=== PATIENT | female | born 1940 | race Caucasian/White ===

== ENCOUNTER 2016-05-19 17:03 | Inpatient (IN) | payer OTHER ==
[~2016-05-19] VITALS: Ht 157.5 cm; Wt 123.0 kg
[~2016-05-19 17:03] MED LIST: ASPEC81 PO; CHOL1CAP85 PO; CYAN10005 SC; CYM20 PO; DONE1TAB11 PO; DOXY-300 PO; FLV1 PO; FLVHFA110 INH; GABA1CAP5 PO; HYDR-5688 PO; LEVO137T3 PO; MECL1TAB42 PO; METO50TA7 PO; MGNO400 PO; NMN10 PO; PRLSR20 PO; PRM9 PO
[2016-05-19] MEDS ORDERED: MoRPHine SULFATE 4 MG/ML 1 ML CARP\\VIAL IV STA ×2 (18:34→21:54)
[2016-05-19] MEDS ORDERED: ONDANSETRON INJ 2 MG/ML 2 ML VIAL IV STA (18:34)
[2016-05-19 19:06] LABS: COMPLETE YES; HEMATOCRIT 35.9 % (37-47); IG% 0.6 %; LYMPH ABS # 1.73 K/uL (1.2-3.4); MEAN CELL VOLUME 89.3 fL (80-100); MEAN CORPUSCULAR HEMOGLOBIN 30.8 pg (25-34); MEAN CORPUSCULAR HGB CONC 34.5 g/dl (32-36); MEAN PLATELET VOLUME 10.1 fL (7.4-10.4); MONO % 9.2 %; NEUT % 80.2 %; PLATELET COUNT 214 K/uL (130-400); RED BLOOD COUNT 4.02 M/uL (4.2-5.4); WHITE BLOOD COUNT 17.25 K/uL (4.8-10.8)
--- NOTE | 2016-05-19 19:23 | DIAGNOSTIC IMAGING REPORT ---
CT SCAN OF THE ABDOMEN AND PELVIS WITHOUT CONTRAST CLINICAL HISTORY: Right-sided abdominal pain. COMPARISON STUDY: No previous studies for comparison. TECHNIQUE: CT scan of the abdomen and pelvis was performed from the lung bases to the proximal femurs. Images are reviewed in the axial, sagittal, and coronal planes. IV contrast was not administered for this examination. CT DOSE: 1776.29 mGy.cm FINDINGS: Lower chest: There is respiratory motion artifact. There is mild basilar atelectatic change. Liver: There is a small amount of perihepatic fluid present. No hepatic masses are visualized in this noncontrast study. Gallbladder: Cholelithiasis. Mildly distended. Spleen: Normal in size and attenuation. Pancreas: Unremarkable. Adrenal glands: There is mild bilateral adrenal gland thickening Kidneys: No renal, ureteral, or bladder calculi are visualized. Bowel: There is a distended stomach. There are multiple mildly dilated small bowel loops containing multiple air-fluid levels. The distal small bowel is of normal caliber. The findings are indicative of a small bowel obstruction. There is mild tethering of the small bowel loops centrally. No free air is visualized. There are no findings to indicate acute diverticulitis. There are no findings to indicate acute appendicitis. Peritoneum: There is a small amount of free pelvic fluid present. Vasculature: There is no evidence of abdominal aortic aneurysm. There is edema within the central small bowel mesentery. Adenopathy: None. Pelvic viscera: The bladder, and pelvic viscera are unremarkable. Skeletal structures: No destructive osseous lesions are seen. IMPRESSION: 1. Small bowel obstruction with mesenteric edema and low volume ascites 2. No evidence of free intraperitoneal air 3. No renal, ureteral, or bladder calculi identified. 4. Cholelithiasis Electronically signed by: Ildefonso Craig M.D. 05/19/2016 7:21 PM Dictated Date/Time: 05/19/2016 7:16 PM
[2016-05-19 19:28] LABS: BUN/CREATININE RATIO 19.1 (10-20); CALCIUM 9.3 mg/dl (8.5-10.1); CREATININE 1.6 mg/dl (0.60-1.20); POTASSIUM 3.4 mmol/L (3.5-5.1)
[2016-05-19 19:30] VITALS: BP 149/85; PULSE 99; Ht 157.5 cm; Wt 123.0 kg
[2016-05-19 20:12] LABS: URINE APPEARANCE TURBID (CLEAR); URINE BILIRUBIN NEG (NEG); URINE COLOR YELLOW; URINE EPITHELIAL CELL AUTO >30 /lpf (0-5); URINE NITRITE NEG (NEG); URINE PH 6.5 (4.5-7.5); URINE SPECIFIC GRAVITY 1.016 (1.000-1.030); UROBILINOGEN NEG (NEG)
[2016-05-19 20:28] LABS: MANUAL MICROSCOPIC REQUIRED? NO; REVIEW REQ? NO
[2016-05-19] MEDS ORDERED: ONDANSETRON INJ 2 MG/ML 2 ML VIAL IV PRN (20:30)
[2016-05-19] MEDS ORDERED: ACETAMINOPHEN 325 MG TAB PO PRN (20:30)
[2016-05-19] MEDS ORDERED: MoRPHine SULFATE 4 MG/ML 1 ML CARP\\VIAL IV PRN (20:45)
[2016-05-19] MEDS ORDERED: CYM20 PO (20:46)
[2016-05-19] MEDS ORDERED: LEVO100T7 PO (20:46)
[2016-05-19] MEDS ORDERED: HydrALAZINE HCL 20 MG/ML VIAL IV. PRN (21:00)
--- NOTE | 2016-05-19 21:14 | History and Physical ---
History & Physical Date & Time of Service: May 19, 2016 at 20:55 Chief Complaint: Abdominal Pain, Vomiting Primary Care Physician: Junito Torres MD History of Present Illness 75 year old female who presents to the ER with abdominal and vomiting. Due to patient's underlying dementia, history is limited from her. Family reports that she developed nausea and vomiting last night and has had several episodes of vomiting since then. No reports of hematemesis or coffee ground emesis. She also developed generalized abdominal pain that has been progressively getting worse. Patient had diarrhea yesterday; last normal bowel movement was previous day. No BRBPR or dark tarry stools. Patient takes hydrocodone twice a day. No reports of chest pain or shortness of breath. No lightheadedness, dizziness, diaphoresis, or syncopal events. Denies urinary symptoms. No fever or chills. In the ER, CT abd/pelvis is showing SBO. Patient was treated with IV morphine and Zofran. NG tube insertion attempt was unsuccessful. Past Medical/Surgical History Medical Problems: (1) Anxiety Status: Chronic (2) Bacterial meningitis Status: Resolved (3) CKD (chronic kidney disease), stage III Status: Chronic (4) Dementia Status: Chronic (5) Depression Status: Chronic (6) HTN (hypertension) Status: Chronic (7) Hypothyroidism Status: Chronic Surgical Problems: (1) S/P hysterectomy Status: Chronic Family History FH: cancer MOTHER Social History Smoking Status: Former Smoker Alcohol Use: none Housing status: lives with family Immunizations History of Influenza Vaccine: Yes Influenza Vaccine Date: Feb 04, 2016 History of Tetanus Vaccine?: Yes Tetanus Immunization Date: Oct 17, 2008 History of Pneumococcal: Yes Pneumococcal Date: Oct 21, 2015 Multi-Drug Resistant Organisms History of MDRO: No Allergies Coded Allergies: Adhesives (Verified Adverse Reaction, Unknown, SKIN TEARS, 05/19/16) Home Medications Scheduled Aspirin (Aspirin EC Low Dose), 81 MG PO QAM Cholecalciferol (Vitamin D3), 50,000 UNITS PO WEEKLY Cyanocobalamin (Vitamin B-12), 1,000 MCG SC MONTHLY Donepezil Hydrochloride (Donepezil Hcl), 1 TAB PO HS Duloxetine HCl (Duloxetine HCl), 60 MG PO QAM Fluticasone Propionate (Flovent Hfa), 2 PUFFS INH BID Folic Acid (Folic Acid), 1 MG PO QAM Gabapentin (Neurontin), 1 CAP PO QID Levothyroxine Sodium (Levothyroxine Sodium), 150 MCG PO DAILY Magnesium Oxide (Magnesium-Oxide), 400 MG PO BID Memantine (Namenda), 10 MG PO BID Metoprolol Succ (Toprol Xl) (Toprol-Xl), 25 MG PO DAILY Omeprazole (Prilosec Otc *), 20 MG PO DAILY Scheduled PRN Hydrocodone/Acetaminophen 5MG/325MG ([place] 5MG/325MG), 1 TABLET PO Q6 PRN for Pain Meclizine Hcl (Meclizine Hcl), 1 TAB PO TID PRN for Dizziness or Vertigo Review of Systems 10 point review of systems was completed with patient's family with the pertinent positives and negatives noted per the HPI Physical Exam Vital Signs Date Time Temp Pulse Resp B/P Pulse Ox O2 Delivery O2 Flow Rate FiO2 05/19/16 20:53 88 20 149/93 95 Room Air 05/19/16 19:02 81 18 136/102 96 Room Air 05/19/16 17:30 37.1 98 20 137/84 97 Room Air General Appearance: + mild distress (appears to be in pain) Head: normocephalic Eyes: normal inspection ENT: hearing grossly normal Neck: supple, no JVD Respiratory/Chest: lungs clear, normal breath sounds, no respiratory distress Cardiovascular: regular rate, rhythm, + pertinent finding (+2 edema BLLE) Abdomen/GI: soft, + tenderness (generalized), + abnormal bowel sounds ( hyperactive) Extremities/Musculoskelatal: normal inspection, no calf tenderness Neurologic/Psych: alert, + disoriented (to place and time) Skin: + pertinent finding (scattered scabbed areas noted over face and BLUE) Diagnostics Laboratory Results Results Past 24 Hours Test 05/19/16 18:50 05/19/16 19:30 Range/Units White Blood Count 17.25 4.8-10.8 K/uL Red Blood Count 4.02 4.2-5.4 M/uL Hemoglobin 12.4 12.0-16.0 g/dL Hematocrit 35.9 37-47 % Mean Corpuscular Volume 89.3 80-100 fL Mean Corpuscular Hemoglobin 30.8 25-34 pg Mean Corpuscular Hemoglobin Concent 34.5 32-36 g/dl Platelet Count 214 130-400 K/uL Mean Platelet Volume 10.1 7.4-10.4 fL Neutrophils (%) (Auto) 80.2 % Lymphocytes (%) (Auto) 10.0 % Monocytes (%) (Auto) 9.2 % Eosinophils (%) (Auto) 0.0 % Basophils (%) (Auto) 0.0 % Neutrophils # (Auto) 13.84 1.4-6.5 K/uL Lymphocytes # (Auto) 1.73 1.2-3.4 K/uL Monocytes # (Auto) 1.58 0.11-0.59 K/uL Eosinophils # (Auto) 0.00 0-0.5 K/uL Basophils # (Auto) 0.00 0-0.2 K/uL RDW Standard Deviation 50.0 36.4-46.3 fL RDW Coefficient of Variation 15.3 11.5-14.5 % Immature Granulocyte % (Auto) 0.6 % Immature Granulocyte # (Auto) 0.10 0.00-0.02 K/uL Sodium Level 141 136-145 mmol/L Potassium Level 3.4 3.5-5.1 mmol/L Chloride Level 104 98-107 mmol/L Carbon Dioxide Level 22 21-32 mmol/L Anion Gap 15.0 3-11 mmol/L Blood Urea Nitrogen 31 7-18 mg/dl Creatinine 1.60 0.60-1.20 mg/dl Est Creatinine Clear Calc Drug Dose 38.6 ml/min Estimated GFR () 36.4 Estimated GFR (Non- 31.4 BUN/Creatinine Ratio 19.1 10-20 Random Glucose 229 70-99 mg/dl Calcium Level 9.3 8.5-10.1 mg/dl Magnesium Level 2.3 1.8-2.4 mg/dl Total Bilirubin 0.8 0.2-1 mg/dl Direct Bilirubin 0.2 0-0.2 mg/dl Aspartate Amino Transf (AST/SGOT) 10 15-37 U/L Alanine Aminotransferase (ALT/SGPT) 23 12-78 U/L Alkaline Phosphatase 102 45-117 U/L Total Protein 8.3 6.4-8.2 gm/dl Albumin 3.9 3.4-5.0 gm/dl Lipase 82 73-393 U/L Urine Color YELLOW Urine Appearance TURBID CLEAR Urine pH 6.5 4.5-7.5 Urine Specific [place] 1.016 1.000-1.030 Urine Protein 1+ NEG Urine Glucose (UA) NEG NEG Urine Ketones TRACE NEG Urine Occult Blood NEG NEG Urine Nitrite NEG NEG Urine Bilirubin NEG NEG Urine Urobilinogen NEG NEG Urine Leukocyte Esterase MODERATE NEG Urine WBC (Auto) 5-10 0-5 /hpf Urine RBC (Auto) 0-4 0-4 /hpf Urine Hyaline Casts (Auto) 5-10 0-5 /lpf Urine Epithelial Cells (Auto) >30 0-5 /lpf Urine Bacteria (Auto) 4+ NEG Diagnostic Radiology CT ABD/PELVIS IMPRESSION: 1. Small bowel obstruction with mesenteric edema and low volume ascites 2. No evidence of free intraperitoneal air 3. No renal, ureteral, or bladder calculi identified. 4. Cholelithiasis Impression Assessment and Plan SBO - admit to med/surg - hx of hysterectomy and chronic narcotic use - NG placement attempt in ED unsuccessful however at the time of my exam there is no nausea or vomiting - NPO, IVF - f/u abd XR in AM - surgery evaluation in AM AMRIT on CKD STAGE III - baseline creat runs in the low 1's, noted to be 1.6 today - prerenal due to vomiting - IVF, follow up labs in AM - avoid nephrotoxic agents when able ASYMPTOMATIC BACTERURIA - empiric Rocephin due to leukocytosis, adjust per culture results - do not suspect sepsis HTN - BP currently controlled - on metoprolol - holding PO meds due to SBO, will use PRN hydralazine for now DEMENTIA - on Namenda and Aricept - holding PO meds due to SBO HYPOTHYROIDISM - on levothyroxine - holding PO meds due to SBO DVT PROPHYLAXIS - SCDs in the event patient needs surgery CODE STATUS - Patient is a full code as per my discussion with patient's daughter (POA) who is at the bedside DISPO - In my clinical judgment this beneficiary meets acute admission criteria, established by [facility], that includes being hospitalized through two midnights. Attending Addendum: The patient was seen and examined Complains of some abdominal pain but no Nausea and or vomiting Presented to ER with right sided abdominal pain and CT showed SBO Refused NGT O/E Obese No acute distress at rest HEENT-Unremarkable Chest-decreased breath sound bilaterally ,no crackles Abdomen-Distended,Soft ,Mildly tender ,Bowel sound present Extremities-Bilateral edema 1+ Labs and Imaging studies were reviewed Has SBO with H/O Hysterectomy-likely due to adhesions Agree with the assessment and plan Dr Ramon Zaman VTE Prophylaxis VTE Risk Assessment Done? Y/N: Yes Risk Level: Moderate
--- NOTE | 2016-05-19 21:37 | EMERGENCY ROOM VISIT NOTE ---
History Report prepared by Amadeo: Ronaldo Colon Under the Supervision of: Dr. Ari Bentley M.D. First contact with patient: 18:28 Chief Complaint: ABDOMINAL PAIN Stated Complaint: PAIN IN THE R SIDE Nursing Triage Summary: Patient presents to triage via wheelchair, states "I hurt all over." Daughter states "She started complaining of right lower abdominal pain today around 1200. 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 Patient vomiting today; normal BMs. History of Present Illness The patient is a 75 year old female who presents to the Emergency Room with complaints of persistent right-sided abdominal pain that the patient woke up with this morning. Per patient's daughters, the patient has had episodes of vomiting and had diarrhea yesterday. The patient denies fever or urinary symptoms at this time. The HPI is limited due to dementia. Source of History: patient, family History Limited By: dementia Onset: this morning Position: abdomen (right-sided) Timing: other (persistent) Associated Symptoms: + diarrhea, + vomiting, No fevers, No urinary symptoms Review of Systems The ROS is limited due to dementia Past Medical & Surgical Medical Problems: (1) Anxiety (2) Bacterial meningitis (3) CKD (chronic kidney disease), stage III (4) Dementia (5) Depression (6) HTN (hypertension) (7) Hypothyroidism Surgical Problems: (1) S/P hysterectomy Family History Diabetes mellitus FH: cancer MOTHER BROTHER Heart disease Social History Smoking Status: Never Smoker Alcohol Use: none Drug Use: none Marital Status: Occupation Status: retired Current/Historical Medications Scheduled Aspirin (Aspirin EC Low Dose), 81 MG PO QAM Cholecalciferol (Vitamin D3), 50,000 UNITS PO WEEKLY Cyanocobalamin (Vitamin B-12), 1,000 MCG SC MONTHLY Donepezil Hydrochloride (Donepezil Hcl), 1 TAB PO HS Duloxetine HCl (Duloxetine HCl), 60 MG PO QAM Fluticasone Propionate (Flovent Hfa), 2 PUFFS INH BID Folic Acid (Folic Acid), 1 MG PO QAM Gabapentin (Neurontin), 1 CAP PO QID Levothyroxine Sodium (Levothyroxine Sodium), 150 MCG PO DAILY Magnesium Oxide (Magnesium-Oxide), 400 MG PO BID Memantine (Namenda), 10 MG PO BID Metoprolol Succ (Toprol Xl) (Toprol-Xl), 25 MG PO DAILY Omeprazole (Prilosec Otc *), 20 MG PO DAILY Scheduled PRN Hydrocodone/Acetaminophen 5MG/325MG ([place] 5MG/325MG), 1 TABLET PO Q6 PRN for Pain Meclizine Hcl (Meclizine Hcl), 1 TAB PO TID PRN for Dizziness or Vertigo Allergies Coded Allergies: Adhesives (Verified Adverse Reaction, Unknown, SKIN TEARS, 05/19/16) Physical Exam Vital Signs Date Time Temp Pulse Resp B/P Pulse Ox O2 Delivery O2 Flow Rate FiO2 05/19/16 19:02 81 18 136/102 96 Room Air 05/19/16 17:30 37.1 98 20 137/84 97 Room Air Physical Exam Constitutional: Vital signs reviewed. Eyes: Pupils are equal round reactive to light. Conjunctiva are noninjected. ENT: Pharynx is clear without erythema or exudate. Mucous membranes are moist. Neck supple without meningeal signs. Respiratory: Clear to auscultation bilaterally. Breath sounds are equal bilaterally. Cardiovascular: Regular rate and rhythm. No rubs or gallops. GI: Soft, nondistended with tenderness in the right upper and lower abdomen. No guarding. Bowel sounds are present. Musculoskeletal:No CVA tenderness. Integumentary: No cyanosis. Neurological: The patient is awake and alert. No focal deficits. Psychiatric: Unable to assess. Medical Decision & Procedures ER Provider Diagnostic Interpretation: Other radiology results as stated below per my review and the radiologist's interpretation: CT SCAN OF THE ABDOMEN AND PELVIS WITHOUT CONTRAST CLINICAL HISTORY: Right-sided abdominal pain. COMPARISON STUDY: No previous studies for comparison. TECHNIQUE: CT scan of the abdomen and pelvis was performed from the lung bases to the proximal femurs. Images are reviewed in the axial, sagittal, and coronal planes. IV contrast was not administered for this examination. CT DOSE: 1776.29 mGy.cm FINDINGS: Lower chest: There is respiratory motion artifact. There is mild basilar atelectatic change. Liver: There is a small amount of perihepatic fluid present. No hepatic masses are visualized in this noncontrast study. Gallbladder: Cholelithiasis. Mildly distended. Spleen: Normal in size and attenuation. Pancreas: Unremarkable. Adrenal glands: There is mild bilateral adrenal gland thickening Kidneys: No renal, ureteral, or bladder calculi are visualized. Bowel: There is a distended stomach. There are multiple mildly dilated small bowel loops containing multiple air-fluid levels. The distal small bowel is of normal caliber. The findings are indicative of a small bowel obstruction. There is mild tethering of the small bowel loops centrally. No free air is visualized. There are no findings to indicate acute diverticulitis. There are no findings to indicate acute appendicitis. Peritoneum: There is a small amount of free pelvic fluid present. Vasculature: There is no evidence of abdominal aortic aneurysm. There is edema within the central small bowel mesentery. Adenopathy: None. Pelvic viscera: The bladder, and pelvic viscera are unremarkable. Skeletal structures: No destructive osseous lesions are seen. IMPRESSION: 1. Small bowel obstruction with mesenteric edema and low volume ascites 2. No evidence of free intraperitoneal air 3. No renal, ureteral, or bladder calculi identified. 4. Cholelithiasis Electronically signed by: Ildefonso Craig M.D. 05/19/2016 7:21 PM Dictated Date/Time: 05/19/2016 7:16 PM Laboratory Results 05/19/16 18:50 Red Blood Count 4.02, Mean Corpuscular Volume 89.3, Mean Corpuscular Hemoglobin 30.8, Mean Corpuscular Hemoglobin Concent 34.5, Mean Platelet Volume 10.1, Neutrophils (%) (Auto) 80.2, Lymphocytes (%) (Auto) 10.0, Monocytes (%) (Auto) 9.2, Eosinophils (%) (Auto) 0.0, Basophils (%) (Auto) 0.0, Neutrophils # (Auto) 13.84, Lymphocytes # (Auto) 1.73, Monocytes # (Auto) 1.58, Eosinophils # (Auto) 0.00, Basophils # (Auto) 0.00 05/19/16 18:50 Test 05/19/16 18:50 05/19/16 19:30 White Blood Count 17.25 K/uL (4.8-10.8) Red Blood Count 4.02 M/uL (4.2-5.4) Hemoglobin 12.4 g/dL (12.0-16.0) Hematocrit 35.9 % (37-47) Mean Corpuscular Volume 89.3 fL (80-100) Mean Corpuscular Hemoglobin 30.8 pg (25-34) Mean Corpuscular Hemoglobin Concent 34.5 g/dl (32-36) Platelet Count 214 K/uL (130-400) Mean Platelet Volume 10.1 fL (7.4-10.4) Neutrophils (%) (Auto) 80.2 % Lymphocytes (%) (Auto) 10.0 % Monocytes (%) (Auto) 9.2 % Eosinophils (%) (Auto) 0.0 % Basophils (%) (Auto) 0.0 % Neutrophils # (Auto) 13.84 K/uL (1.4-6.5) Lymphocytes # (Auto) 1.73 K/uL (1.2-3.4) Monocytes # (Auto) 1.58 K/uL (0.11-0.59) Eosinophils # (Auto) 0.00 K/uL (0-0.5) Basophils # (Auto) 0.00 K/uL (0-0.2) RDW Standard Deviation 50.0 fL (36.4-46.3) RDW Coefficient of Variation 15.3 % (11.5-14.5) Immature Granulocyte % (Auto) 0.6 % Immature Granulocyte # (Auto) 0.10 K/uL (0.00-0.02) Anion Gap 15.0 mmol/L (3-11) Est Creatinine Clear Calc Drug Dose 38.6 ml/min Estimated GFR () 36.4 Estimated GFR (Non- 31.4 BUN/Creatinine Ratio 19.1 (10-20) Calcium Level 9.3 mg/dl (8.5-10.1) Magnesium Level 2.3 mg/dl (1.8-2.4) Total Bilirubin 0.8 mg/dl (0.2-1) Direct Bilirubin 0.2 mg/dl (0-0.2) Aspartate Amino Transf (AST/SGOT) 10 U/L (15-37) Alanine Aminotransferase (ALT/SGPT) 23 U/L (12-78) Alkaline Phosphatase 102 U/L (45-117) Total Protein 8.3 gm/dl (6.4-8.2) Albumin 3.9 gm/dl (3.4-5.0) Lipase 82 U/L (73-393) Urine Color YELLOW Urine Appearance TURBID (CLEAR) Urine pH 6.5 (4.5-7.5) Urine Specific [place] 1.016 (1.000-1.030) Urine Protein 1+ (NEG) Urine Glucose (UA) NEG (NEG) Urine Ketones TRACE (NEG) Urine Occult Blood NEG (NEG) Urine Nitrite NEG (NEG) Urine Bilirubin NEG (NEG) Urine Urobilinogen NEG (NEG) Urine Leukocyte Esterase MODERATE (NEG) Urine WBC (Auto) 5-10 /hpf (0-5) Urine RBC (Auto) 0-4 /hpf (0-4) Urine Hyaline Casts (Auto) 5-10 /lpf (0-5) Urine Epithelial Cells (Auto) >30 /lpf (0-5) Urine Bacteria (Auto) 4+ (NEG) Laboratory results as reviewed by me. Medications Administered Medications (Trade) Dose Ordered Sig/Arian Route Start Time Stop Time Status Last Admin Dose Admin Morphine Sulfate (MoRPHine SULFATE INJ) 4 mg ONE STAT IV 05/19/16 18:34 05/19/16 18:37 DC 05/19/16 18:57 4 MG Ondansetron HCl (Zofran Inj) 4 mg NOW STAT IV 05/19/16 18:34 05/19/16 18:37 DC 05/19/16 18:57 4 MG ED Course 1819: The patient was evaluated in room B7. A complete history and physical exam was performed. 1833: Ordered Zofran Inj 4 mg IV, Morphine Sulfate 4 mg IV. 1944: At this time, I discussed the test results with the patient and her daughter. 1956: At this time, I discussed the patient's case with Dr. aZman - Hospitalist [facility] and he agreed to accept the patient for further evaluation. Medical Decision This is a 75-year-old female who presents with right-sided abdominal pain. Differential diagnosis includes acute appendicitis, perforation, abscess, cholecystitis, pancreatitis, bowel obstruction. I did perform a limited focused review of portions of the patient's old chart on the electronic medical record. The patient has had no recent pertinent visits to this hospital. I did evaluate the patient as noted above. I did obtain history from the patient's daughters because of her dementia. She is presenting with right- sided abdominal pain and tenderness. IV access was established. I did treat patient with IV morphine and Zofran. I did order and review the patient's blood work as noted in the electronic medical record. Her white blood cell count is elevated. I did order a CT of the abdomen and pelvis. I did review the images myself as well as the radiology report as described above. She does have a small bowel obstruction. I did order an NG tube. I did discuss case with the hospitalist and case investigator. I did discuss the test results with the patient and her daughter. Consults Time Called: 1951 Consulting Physician: Dr. Zaman - Hospitalist Paul Returned Call: 1956 At this time, I discussed the patient's case with Dr. Zaman and he agreed to accept the patient for further evaluation. Impression Primary Impression: Small bowel obstruction Scribe Attestation The scribe's documentation has been prepared under my direct and personally reviewed by me in its entirety. I confirm that the note above accurately reflects all work, treatment, procedures, and medical decision making performed by me. Departure Information Dispostion Being Evaluated By Hospitalist Prescriptions Duloxetine HCl (Duloxetine HCl) 20 Mg Cap 60 MG PO QAM, #30 CAP Prov: Betty Miller ., DANIELLA 05/19/16 Referrals Junito Torres MD (PCP)
[2016-05-19] MEDS ORDERED: NURSING VERBAL MED ORDER ONE (21:45)
[2016-05-19] MEDS ORDERED: MoRPHine SULFATE 4 MG/ML 1 ML CARP\\VIAL IV ONE (22:00)
[2016-05-19] MEDS ORDERED: CEFTRIAXONE SOD INJ 1 GM in DEXTROSE 5% ADD-VANTAGE 50ML 50 ML IV SCH (22:00)
[2016-05-19 22:21] VITALS: BP 122/57; PULSE 123; O2SAT 95
[2016-05-19] MEDS: SODIUM CHLORIDE 0.9% 1000ML 1,000 ML IV SCH (22:44)
[2016-05-19 23:05] VITALS: BP 115/77; PULSE 106; TEMP 36.3; O2SAT 92
[2016-05-19] MEDS: POTASSIUM CHLR 10 MEQ / WTR 10 MEQ in PREMIXED WATER 100 ML IV SCH (23:30)
[2016-05-19] MEDS ORDERED: LORAZEPAM INJ 1 MG in SYRINGE 0.5 ML IV STA (23:52)
[2016-05-20] VITALS (43 sets, daily range): BP systolic 35–117; BP diastolic 23–80; PULSE 97–143; TEMP 36.8; O2SAT 91–100
[2016-05-20] MEDS: POTASSIUM CHLR 10 MEQ / WTR 10 MEQ in PREMIXED WATER 100 ML IV SCH ×3 (00:45→03:10)
[2016-05-20] MEDS ORDERED: MoRPHine SULFATE 2 MG/ML CARP IV STA ×2 (05:30→14:25)
[2016-05-20] MEDS: SODIUM CHLORIDE 0.9% 1000ML 1,000 ML IV SCH (05:52)
[2016-05-20] MEDS ORDERED: LORAZEPAM INJ 0.5 MG in SYRINGE 0.25 ML IV STA (06:42)
[2016-05-20 06:56] LABS: ESTIMATED AVERAGE GLUCOSE 91 mg/dl; HA1C FLAG Normal (Normal)
[2016-05-20 08:21] LABS: HEMATOCRIT 32.3 % (37-47); MEAN CELL VOLUME 91.2 fL (80-100); MEAN CORPUSCULAR HEMOGLOBIN 30.5 pg (25-34); MEAN CORPUSCULAR HGB CONC 33.4 g/dl (32-36); MEAN PLATELET VOLUME 10.9 fL (7.4-10.4); PLATELET COUNT 198 K/uL (130-400); RED BLOOD COUNT 3.54 M/uL (4.2-5.4); WHITE BLOOD COUNT 30.92 K/uL (4.8-10.8)
[2016-05-20 08:31] LABS: BUN/CREATININE RATIO 18.8 (10-20); CALCIUM 9.1 mg/dl (8.5-10.1); CREATININE 2.3 mg/dl (0.60-1.20); POTASSIUM 4.8 mmol/L (3.5-5.1)
--- NOTE | 2016-05-20 08:44 | DIAGNOSTIC IMAGING REPORT ---
CHEST ONE VIEW PORTABLE HISTORY: Respiratory distress. COMPARISON: Chest 03/10/2015. FINDINGS: There are low lung volumes with mild elevation the right hemidiaphragm. Bibasilar linear densities favor subsegmental atelectasis. No focal lung consolidations to suggest pneumonia. No evidence for pulmonary edema. The heart is normal in size. IMPRESSION: Low lung volumes with mild elevation of the right hemidiaphragm and bibasilar linear densities. This favors subsegmental atelectasis. Electronically signed by: Bc Judge M.D. 05/20/2016 8:42 AM Dictated Date/Time: 05/20/2016 8:41 AM
--- NOTE | 2016-05-20 09:00 | Progress Note ---
Medicine Progress Note Date & Time of Visit: May 20, 2016 at 08:37. Subjective 0800: Called by nurse that patient was writhing around the bed and she was unable to get a blood pressure on her. I ordered IVF wide open and came to bedside. Could not obtain a pulse on arrival with a RR 31. Could not obtain lung sounds as she had frequent moaning and upper airway sounds, but did hear some air movement. Feet looked dusky purple. Ordered stat CXR, called for PLASTIC INSTALLER to evaluate. Starting 100% oxygen with bagging and sat came up to 94%, lab called with a critical WBC 30K, repeat labs drawn ([place]). FSG was >120. Rhythm is sinus on monitor. Heading to ICU for further workup and treatment. Contacted daughter to update her on status change. She mentioned mom has had a "cold" with cough and congestion for the last 2-3 weeks. She then began having diarrhea 2 days ago with worsening abdominal pain yesterday. Denies any fevers , chills or mention of UTI symptoms. Was admitted for SBO overnight, also found to have a UTI. Started on Rocephin for the UTI. No free air or evidence of infection on CT A/P. NGT placement was unsuccessful in ER (two attempts in each nare) and declined further attempts because of epistaxis from trauma. She was placed on the floor and given Morphine and some Ativan overnight. Last dose of morphine was 0300 and last dose of Ativan was 0630. Last recorded vitals were 2300 and were 115/77 RR 30 T36.3 P106 92% RA. Objective Last 8 Hrs Date Time Temp Pulse Resp B/P Pulse Ox O2 Delivery O2 Flow Rate FiO2 05/20/16 07:39 Room Air 05/20/16 02:00 24 Physical Exam: GEN: obese, writhing in acute distress, says "ow" when I push on her abdomen, facial grimacing, lips and mouth are dry, tachypneic HEENT: NC/AT, PERRL, normal sclerae CARDIO: reg rate, S1/2 heard without m/g/r, could not obtain palpable pulse in groin, carotid, brachial or peripheral extremities LUNGS: CTA bilaterally but limited exam ABD: soft, TTP in upper abdomen, no BS appreciated EXTREMITY: warm but with a dusky purple appearance, no palpable pulses, no edema. N/M: could not obtain SKIN: warm and dry and as above Laboratory Results: Last 24 Hours Test 05/19/16 18:50 05/19/16 19:30 05/20/16 07:35 White Blood Count 17.25 K/uL 30.92 K/uL Red Blood Count 4.02 M/uL 3.54 M/uL Hemoglobin 12.4 g/dL 10.8 g/dL Hematocrit 35.9 % 32.3 % Mean Corpuscular Volume 89.3 fL 91.2 fL Mean Corpuscular Hemoglobin 30.8 pg 30.5 pg Mean Corpuscular Hemoglobin Concent 34.5 g/dl 33.4 g/dl Platelet Count 214 K/uL 198 K/uL Mean Platelet Volume 10.1 fL 10.9 fL Neutrophils (%) (Auto) 80.2 % Lymphocytes (%) (Auto) 10.0 % Monocytes (%) (Auto) 9.2 % Eosinophils (%) (Auto) 0.0 % Basophils (%) (Auto) 0.0 % Neutrophils # (Auto) 13.84 K/uL Lymphocytes # (Auto) 1.73 K/uL Monocytes # (Auto) 1.58 K/uL Eosinophils # (Auto) 0.00 K/uL Basophils # (Auto) 0.00 K/uL RDW Standard Deviation 50.0 fL 53.8 fL RDW Coefficient of Variation 15.3 % 16.1 % Immature Granulocyte % (Auto) 0.6 % Immature Granulocyte # (Auto) 0.10 K/uL Sodium Level 141 mmol/L 141 mmol/L Potassium Level 3.4 mmol/L 4.8 mmol/L Chloride Level 104 mmol/L 107 mmol/L Carbon Dioxide Level 22 mmol/L 17 mmol/L Anion Gap 15.0 mmol/L 17.0 mmol/L Blood Urea Nitrogen 31 mg/dl 43 mg/dl Creatinine 1.60 mg/dl 2.30 mg/dl Est Creatinine Clear Calc Drug Dose 38.6 ml/min 26.9 ml/min Estimated GFR () 36.4 23.5 Estimated GFR (Non- 31.4 20.3 BUN/Creatinine Ratio 19.1 18.8 Random Glucose 229 mg/dl 192 mg/dl Estimated Average Glucose 91 mg/dl Hemoglobin A1c 4.8 % Calcium Level 9.3 mg/dl 9.1 mg/dl Magnesium Level 2.3 mg/dl Total Bilirubin 0.8 mg/dl Direct Bilirubin 0.2 mg/dl Aspartate Amino Transf (AST/SGOT) 10 U/L Alanine Aminotransferase (ALT/SGPT) 23 U/L Alkaline Phosphatase 102 U/L Total Protein 8.3 gm/dl Albumin 3.9 gm/dl Lipase 82 U/L Urine Color YELLOW Urine Appearance TURBID Urine pH 6.5 Urine Specific [place] 1.016 Urine Protein 1+ Urine Glucose (UA) NEG Urine Ketones TRACE Urine Occult Blood NEG Urine Nitrite NEG Urine Bilirubin NEG Urine Urobilinogen NEG Urine Leukocyte Esterase MODERATE Urine WBC (Auto) 5-10 /hpf Urine RBC (Auto) 0-4 /hpf Urine Hyaline Casts (Auto) 5-10 /lpf Urine Epithelial Cells (Auto) >30 /lpf Urine Bacteria (Auto) 4+ Assessment & Plan 75 yo F admitted for SBO and found to have a UTI, became less responsive and hypotensive, rapid response was initiated and she was transferred to ICU 1. Hypotension-etiologies include but not limited to septic shock (WBC 30K), hypovolemic shock (diarrhea and vomiting recently) and medication reaction ( Ativan given this morning). 1L fluid bolus running, transferred to ICU for further workup and treatment. Daughter reports a recent cold for 2-3 weeks. Will order flu swab. CXR reveals a RLL infiltrate-no comparison available-- likely 2/2 aspiration with recent events. Defer to ICU team for further care. 2. SBO-Gen Surg consulted on patient and should be seeing her this morning. 3. UTI-cont Rocephin, however, abx will likely be broadened in light of recent events. 4. AMRIT-worsened on am labs likely related to poor perfusion. Cont IVF. 5. Leukocytosis 2/2 above-17K on admission and 31K this morning. 6. Dementia 7. Hypothyroidism DVT proph-SCDs (no chemoprophy in light of poss need for procedure) Full Dispo: to ICU for further workup and treatment Olya Stewart DO [facility] Hospitalist Current Inpatient Medications: Current Inpatient Medications Medications (Trade) Dose Ordered Sig/Arian Route Start Time Stop Time Status Last Admin Dose Admin Acetaminophen (Tylenol Tab) 650 mg Q4H PRN PO 05/19/16 20:30 06/18/16 20:29 Ondansetron HCl 4 mg 4 mg Q6H PRN IV 1/12/17 20:30 06/18/16 20:29 Sodium Chloride 1,000 ml @ 125 mls/hr Q8H IV 05/19/16 21:30 06/18/16 21:29 05/20/16 05:52 125 MLS/HR Ceftriaxone Sodium/Dextrose (Rocephin Inj/ Dextrose Add-[place] 50ML) 50 ml @ 100 mls/hr Q24H IV 05/19/16 22:00 05/24/16 21:59 05/19/16 23:25 100 MLS/HR Morphine Sulfate (MoRPHine SULFATE INJ) 4 mg Q4H PRN IV 05/19/16 20:45 06/02/16 20:44 05/20/16 03:11 4 MG Hydralazine HCl (HydrALAZINE INJ) 10 mg Q6H PRN IV. 05/19/16 21:00 06/18/16 20:59
[2016-05-20 09:03] LABS: IPAP 15; ISTAT ARTERIAL BLOOD GAS HCO3 10 meq/L (19-24); ISTAT ARTERIAL BLOOD GAS PCO2 28 mmHg (35-46); ISTAT ARTERIAL BLOOD GAS PO2 303 mmHg (80-95); ISTAT ARTERIAL BLOOD GAS pH 7.16 (7.35-7.45); ISTAT CARBON DIOXIDE 11 mEq/l (24-31); ISTAT DELIVERY SYSTEM BIPAP; ISTAT FIO2 100 %; ISTAT RATE 14; ISTAT SITE R Brachial
[2016-05-20] MEDS ORDERED: SODIUM BICARB 8.4% INJ 50 MEQ/50 ML SYR - CCU EMERGENCY DRUG IV ONE (09:09)
[2016-05-20] MEDS ORDERED: PIPERACILL/TAZOBAC CONSULT ACTIVE PRN (09:45)
[2016-05-20] MEDS ORDERED: SODIUM BICARBONATE 8.4% INJ 150 MEQ in DEXTROSE 5% 1000ML 1,000 ML IV SCH (09:45)
[2016-05-20] MEDS ORDERED: PIPERACILL/TAZOBAC IV 4.5 GM in DEXTROSE 5% 100ML IV ONE (10:00)
[2016-05-20] MEDS ORDERED: PROPOFOL IV EMULSION 10 MG/ML 100 ML VIAL IV ONE (10:06)
[2016-05-20] MEDS ORDERED: FENTANYL CITRATE INJ 50 MCG/1 ML 2 ML VIAL ONE (10:07)
[2016-05-20] MEDS ORDERED: NURSING VERBAL MED ORDER ONE ×2 (10:15)
--- NOTE | 2016-05-20 10:16 | Critical Care Consultation ---
Critical Care Consultation Date of Consultation: May 20, 2016. Attending Physician: Olya Stewart DO Reason for Consultation: SBO, hypotension History of Present Illness Attending: Dr. Guillory This is a 75-year-old female that presented to the emergency room yesterday with abdominal pain and vomiting. Family reports that she had vomiting that developed rather quickly over a 24-hour period. She had a CT of the abdomen and pelvis which showed a small bowel obstruction with no free air. Patient was placed on the medical floor and overnight it is reported that nursing had increasing problems with acquiring vital signs and with increased agitation by the patient. This morning, a yue purple was called for rapid response team, and we are asked to evaluate the patient. At that time, patient was found to be awake and agitated but could not answer any questions appropriately. Patient stated that she was short of breath on multiple occasions during the time of her visit. Pulse oximetry was obtained and patient was found to be 94% after several minutes of [id number] resuscitation. Blood pressure was not able to be obtained until the patient arrived in the intensive care unit and at that time was found to be 89/67. BiPAP was placed at 10/5. In the ICU, the patient became more hypotensive and a central line was placed in the right IJ. Patient then required endotracheal intubation. An OG tube was placed with immediate return of approximately 800mL of dark gastric contents. Patient was taken to CT for repeat imaging and found to have evidence of hemorrhagic ascites and blood in the stomach. There was progressive mesenteric edema with development of mesenteric venous gas and portal venous gas consistent with ischemic bowel. Patient continued with evidence for small bowel obstruction. Past Medical/Surgical History Medical Problems: (1) Anxiety (2) Bacterial meningitis (3) Chronic gastric ulcer (4) CKD (chronic kidney disease), stage III (5) Degenerative lumbar spinal stenosis (6) Dementia (7) Depression (8) Folic acid deficiency (9) History of tobacco abuse (10) HTN (hypertension) (11) Hypothyroidism (12) Meniere's disease (13) Neurotic excoriations (14) Obesity, Class III, BMI 40-49.9 (morbid obesity) (15) Vitamin B12 deficiency Surgical Problems: (1) S/P hysterectomy Family History FH: cancer MOTHER Social History Smoking Status: Former Smoker Smokeless Tobacco Use: No Alcohol Use: none Drug Use: none Marital Status: Housing Status: lives with family Occupation Status: retired Allergies Coded Allergies: Adhesives (Verified Adverse Reaction, Unknown, SKIN TEARS, 05/19/16) Home Medications Scheduled Aspirin (Aspirin EC Low Dose), 81 MG PO QAM Cholecalciferol (Vitamin D3), 50,000 UNITS PO WEEKLY Cyanocobalamin (Vitamin B-12), 1,000 MCG SC MONTHLY Donepezil Hydrochloride (Donepezil Hcl), 1 TAB PO HS Duloxetine HCl (Duloxetine HCl), 60 MG PO QAM Fluticasone Propionate (Flovent Hfa), 2 PUFFS INH BID Folic Acid (Folic Acid), 1 MG PO QAM Gabapentin (Neurontin), 1 CAP PO QID Levothyroxine Sodium (Levothyroxine Sodium), 150 MCG PO DAILY Magnesium Oxide (Magnesium-Oxide), 400 MG PO BID Memantine (Namenda), 10 MG PO BID Metoprolol Succ (Toprol Xl) (Toprol-Xl), 25 MG PO DAILY Omeprazole (Prilosec Otc *), 20 MG PO DAILY Scheduled PRN Hydrocodone/Acetaminophen 5MG/325MG ([place] 5MG/325MG), 1 TABLET PO Q6 PRN for Pain Meclizine Hcl (Meclizine Hcl), 1 TAB PO TID PRN for Dizziness or Vertigo Current Inpatient Medications Current Inpatient Medications Medications (Trade) Dose Ordered Sig/Arian Route Start Time Stop Time Status Last Admin Dose Admin Acetaminophen (Tylenol Tab) 650 mg Q4H PRN PO 05/19/16 20:30 06/18/16 20:29 Ondansetron HCl (Zofran Inj) 4 mg Q6H PRN IV 05/19/16 20:30 06/18/16 20:29 Morphine Sulfate (MoRPHine SULFATE INJ) 4 mg Q4H PRN IV 05/19/16 20:45 06/02/16 20:44 05/20/16 03:11 4 MG Hydralazine HCl (HydrALAZINE INJ) 10 mg Q6H PRN IV. 05/19/16 21:00 06/18/16 20:59 Piperacillin Sod/ Tazobactam Sod 1 ea 1 ea UD PRN N/A 05/20/16 09:45 06/19/16 09:44 Sodium Bicarbonate 150 meq/Dextrose 1,150 ml @ 150 mls/hr Q7H40M IV 05/20/16 09:45 06/19/16 09:44 Piperacillin Sod/ Tazobactam Sod 4.5 gm/Dextrose 120 ml @ 200 mls/hr 1000 ONCE IV 05/20/16 10:00 05/20/16 10:35 Piperacillin Sod/ Tazobactam Sod 4.5 gm/Dextrose 120 ml @ 30 mls/hr Q8H IV 05/20/16 16:00 05/30/16 09:59 Pantoprazole Sodium/Syringe (Protonix Inj/ Syringe) 10 ml @ 5 mls/min DAILY@11 IV 05/20/16 11:00 06/19/16 10:59 Albuterol/ Ipratropium 3 ml 3 ml QIDR INH 05/20/16 12:00 06/19/16 11:59 Norepinephrine Bitartrate 8 mg/ Dextrose 508 ml @ 0 mls/hr Q0M PRN IV 05/20/16 10:15 06/19/16 10:14 Metronidazole/Prmx (Flagyl / Nss/ Premixed Nss) 100 ml @ 100 mls/hr Q8H IV 05/20/16 10:30 05/30/16 10:29 Review of Systems Unable to obtain secondary to patient condition Physical Exam Date Time Temp Pulse Resp B/P Pulse Ox O2 Delivery O2 Flow Rate FiO2 05/20/16 07:39 Room Air 05/20/16 02:00 24 05/19/16 23:05 36.3 106 30 115/77 92 Room Air 05/19/16 22:21 123 30 122/57 95 Room Air 05/19/16 20:53 88 20 149/93 95 Room Air 05/19/16 19:30 Room Air 05/19/16 19:30 99 20 149/85 05/19/16 19:30 Room Air 05/19/16 19:02 81 18 136/102 96 Room Air 05/19/16 17:30 37.1 98 20 137/84 97 Room Air GENERAL : Significant acute distress EYES: No icterus, gaze conjugate. PERRL NOSE: No evidence of epistaxis. MOUTH: No lesions or candidiasis. Mucosa dry. Tongue midline NECK: Supple. No appreciation of carotid bruits or lymphadenopathy LUNGS: Bibasilar crackles with expiratory bronchospasm HEART: Regular, tachycardic at one 10 bpm ABDOMEN: Soft, diffusely tender to light and deep palpation. No fluid wave. Rebound tenderness. EXTREMITIES: No LE edema, pedal pulses intact bilaterally but faint. Feet dusky NEURO: Awake and agitated. Unable to assess deep tendon reflexes. Pupils equal and reactive bilaterally. Strength equal and appropriate to upper extremities. Does not follow simple commands. INTEGUMENTARY: Skin dry and cool. Multiple excoriations.. No evidence of acute cellulitis Laboratory Results Last 24 Hours Test 05/19/16 18:50 05/19/16 19:30 05/20/16 07:35 05/20/16 08:20 White Blood Count 17.25 K/uL 30.92 K/uL Red Blood Count 4.02 M/uL 3.54 M/uL Hemoglobin 12.4 g/dL 10.8 g/dL Hematocrit 35.9 % 32.3 % Mean Corpuscular Volume 89.3 fL 91.2 fL Mean Corpuscular Hemoglobin 30.8 pg 30.5 pg Mean Corpuscular Hemoglobin Concent 34.5 g/dl 33.4 g/dl Platelet Count 214 K/uL 198 K/uL Mean Platelet Volume 10.1 fL 10.9 fL Neutrophils (%) (Auto) 80.2 % Lymphocytes (%) (Auto) 10.0 % Monocytes (%) (Auto) 9.2 % Eosinophils (%) (Auto) 0.0 % Basophils (%) (Auto) 0.0 % Neutrophils # (Auto) 13.84 K/uL Lymphocytes # (Auto) 1.73 K/uL Monocytes # (Auto) 1.58 K/uL Eosinophils # (Auto) 0.00 K/uL Basophils # (Auto) 0.00 K/uL RDW Standard Deviation 50.0 fL 53.8 fL RDW Coefficient of Variation 15.3 % 16.1 % Immature Granulocyte % (Auto) 0.6 % Immature Granulocyte # (Auto) 0.10 K/uL Sodium Level 141 mmol/L 141 mmol/L Potassium Level 3.4 mmol/L 4.8 mmol/L Chloride Level 104 mmol/L 107 mmol/L Carbon Dioxide Level 22 mmol/L 17 mmol/L Anion Gap 15.0 mmol/L 17.0 mmol/L Blood Urea Nitrogen 31 mg/dl 43 mg/dl Creatinine 1.60 mg/dl 2.30 mg/dl Est Creatinine Clear Calc Drug Dose 38.6 ml/min 26.9 ml/min Estimated GFR () 36.4 23.5 Estimated GFR (Non- 31.4 20.3 BUN/Creatinine Ratio 19.1 18.8 Random Glucose 229 mg/dl 192 mg/dl Estimated Average Glucose 91 mg/dl Hemoglobin A1c 4.8 % Calcium Level 9.3 mg/dl 9.1 mg/dl Magnesium Level 2.3 mg/dl Total Bilirubin 0.8 mg/dl Direct Bilirubin 0.2 mg/dl Aspartate Amino Transf (AST/SGOT) 10 U/L Alanine Aminotransferase (ALT/SGPT) 23 U/L Alkaline Phosphatase 102 U/L Total Protein 8.3 gm/dl Albumin 3.9 gm/dl Lipase 82 U/L Urine Color YELLOW Urine Appearance TURBID Urine pH 6.5 Urine Specific [place] 1.016 Urine Protein 1+ Urine Glucose (UA) NEG Urine Ketones TRACE Urine Occult Blood NEG Urine Nitrite NEG Urine Bilirubin NEG Urine Urobilinogen NEG Urine Leukocyte Esterase MODERATE Urine WBC (Auto) 5-10 /hpf Urine RBC (Auto) 0-4 /hpf Urine Hyaline Casts (Auto) 5-10 /lpf Urine Epithelial Cells (Auto) >30 /lpf Urine Bacteria (Auto) 4+ Bedside Glucose 126 mg/dl Test 05/20/16 08:51 Blood Gas Sample Site R Brachial Bedside Blood Gas pH (LAB) 7.16 Bedside Blood Gas pCO2 (LAB) 28 mmHg Bedside Blood Gas pO2 (LAB) 303 mmHg Bedside Blood Gas HCO3 (LAB) 10 meq/L Bedside Blood Gas Total CO2 11 mEq/l Bedside Blood Gas Base Excess (LAB) -19.0 meq/L Bedside Blood Gas O2 Saturation 100.0 % Jose Juan Test NA Oxygen Delivery Device BIPAP Bedside Oxygen Rate (breaths/min) 14 Bedside FiO2 100 % Blood Gas IPAP 15 Diagnostic Results [~ rep ct add3]] CT SCAN OF THE ABDOMEN AND PELVIS WITHOUT CONTRAST CLINICAL HISTORY: Small bowel obstruction. Gastrointestinal hemorrhage. Evaluate for perforation. COMPARISON STUDY: 05/19/2016 TECHNIQUE: CT scan of the abdomen and pelvis was performed from the lung bases to the proximal femurs. Images are reviewed in the axial, sagittal, and coronal planes. IV contrast was not administered for this examination. CT DOSE: 2544.29 mGy.cm FINDINGS: Lower chest: There are bibasal atelectatic changes. There are coronary artery calcifications. Liver: There is increasing perihepatic fluid. There is portal venous gas. No focal masses are visualized. Gallbladder: There is progressive gallbladder distention. Multiple calculi are visualized. Spleen: Normal in size and attenuation. Pancreas: Unremarkable. Adrenal glands: There is stable adrenal gland thickening Kidneys: No renal, ureteral, or bladder calculi are visualized Bowel: There are dilated small bowel loops with multiple air-fluid levels. There is mesenteric edema. There is mesenteric venous gas. The findings are suggestive of a small bowel obstruction with bowel ischemia. There is been interval placement of a nasogastric tube. Peritoneum: No free air is visualized. There is increasing pelvic fluid. This appears hyperdense and may be hemorrhagic Vasculature: The abdominal aorta is normal in course and caliber. Adenopathy: None. Pelvic viscera: There is residual a Franco catheter. There is air within the bladder likely iatrogenic. There is been interval placement of a left femoral line. Skeletal structures: No destructive osseous lesions are seen. IMPRESSION: 1. Continued evidence for a small bowel obstruction. There is increasing ascites which is hyperdense and likely hemorrhagic. There is progressive mesenteric edema. There has been interval development of mesenteric venous gas and portal venous gas. The findings are highly suggestive of ischemic bowel. The findings were discussed with the ordering clinician. 2. Cholelithiasis and gallbladder distention 3. Interval placement of a nasogastric tube and left femoral catheter Electronically signed by: Ildefonso Craig M.D. 05/20/2016 12:16 PM Dictated Date/Time: 05/20/2016 12:08 PM CHEST ONE VIEW PORTABLE HISTORY: LINE PLACEMENT COMPARISON: Chest 05/20/2016. FINDINGS: The endotracheal tube terminates 8 mm from the amy. Nasogastric tube terminates below the diaphragm. The tip is not included on this study. There is moderate distention of the gas-filled stomach. Mild elevation the right hemidiaphragm persists. There are low lung volumes. The heart is stable in size. No pneumothorax. No pleural effusions. No evidence for pulmonary edema. Right jugular central venous catheter terminates in the proximal SVC. IMPRESSION: 1. The endotracheal tube terminates 8 mm from the amy. This should be pulled back by approximately 2 to 3 cm. Otherwise, satisfactory support line placement. 2. Low lung volumes with mild elevation of the right hemidiaphragm, unchanged. 3. Moderate distention of the stomach. Electronically signed by: Bc Judge M.D. 05/20/2016 10:38 AM Dictated Date/Time: 05/20/2016 10:34 AM Assessment & Plan (1) Small bowel obstruction Surgery consulted and seen by Dr. Bran Repeat CT scan shows ischemic bowel as well Currently patient is too unstable for OR Very poor prognosis OG tube in place Discontinue ceftriaxone and start Zosyn and metronidazole Acidotic with pH is 7.1 and bicarbonate of 10 Continue aggressive fluid hydration with D5 with three absent HCO3 at 150 mL per hour (2) Chronic gastric ulcer Start patient on pantoprazole 40 mg IV OG tube with approximately 800 mL of dark gastric content GI consulted - appreciate Dr. Guzman's input No indication for EGD secondary to acute ischemic bowel and poor prognosis Repeat H&H Type and cross packed red blood cells Follow serial labs (3) HTN (hypertension) Hold antihypertensive secondary to hypotension Patient currently on levo fed Titrate to map greater than 60 Continue on telemetry (4) Hypothyroidism Hold levothyroxine for now due to poor prognosis and probable comfort care If status changes start levothyroxine IV (5) Depression Hold home medications secondary to status (6) Anxiety No benzodiazepines or other anxiolytics secondary to severe hypotension (7) CKD (chronic kidney disease), stage III Baseline creatinine 1.6 Current creatinine 2.3 Continue aggressive fluid hydration Serial labs Most likely multi system organ failure secondary to acute illness (8) Folic acid deficiency No indication for casting replacement this time secondary to acute status (9) Neurotic excoriations No evidence of cellulitis Wound care consulted Focus on palliative care at this time (10) Obesity, Class III, BMI 40-49.9 (morbid obesity) (11) Meniere's disease Hold meclizine secondary to acute condition (12) History of tobacco abuse Quit smoking 13 years ago (13) DVT prophylaxis No chemical prophylaxis secondary to acute GI bleed Patient currently with SCDs in place Elevated d-dimer - Doubt pulmonary embolus - unable to anticoagulate secondary to acute GI bleed and ischemic bowel (14) Need for intravenous access Right IJ catheter placed 05/20/16 Left femoral arterial line placed 05/20/16 CODE STATUS: Lengthy discussion with family regarding code status and futility of care. Multidisciplinary discussion with GI, surgery, heel coverer. Change to level V DO NOT RESUSCITATE/DO NOT INTUBATE. Focus on palliation per AGUEDA Joslyn Theresa, daughter and Angle Eber, daughter. They're contacting remainder of family and will advise to any further change in code status. CCT: 90 minutes independent of any procedures. Includes lengthy discussion regarding CODE STATUS with family. Includes discussion with other providers including surgery, radiologist, bleach tester. Patient seen with Dr. Guillory. Please refer to her addendum for further recommendations. Panel Machine Operator Attending: I personally interviewed and examined the patient and have discussed her presentation and care with Stanley Diaz PA-C. I agree with what is documented in his note. I was in her room shortly after her arrival to the ICU to place TLC and arterial line. I was not contacted by the primary service regarding her transfer and code purple. History and exam documented above and it confirms my review of the chart and exam as well. Labs, vitals, medications, imaging, micro have been reviewed. This is an unfortunate woman who was admitted to the hospital with abdominal pain and who has developed GIB along with mesenteric ischemia. I resuscitated her with 4 liters of crystalloid and antibiotics were broadened upon arrival to the ICU. She was intubated and lined. After her Ct abd/pelvis from today was reviewed, I also discussed her care with Dr. Bran. She was continuing to deteriorate and clearly has multisystem organ failure due to septic shock and likely a catastrophic intrabdominal process. I spoke with her family in conference with Mary. Thy opted to focus on comfort but they are waiting for other family members to arrive before stopping levophed. I don't think she would survive surgery with her frail and debilitated state and her daughters express that she would not want to live just to have to live in a alf. Support was provided and multiple discussions with family occurred throughout the day. Please call me with any questions or concerns.
[2016-05-20] MEDS: NOREPINEPHRINE BIT INJ 8 MG in DEXTROSE 5% 500ML 500 ML IV PRN ×3 (10:21→14:23)
[2016-05-20] MEDS: METRONIDAZOLE 500MG / NSS IV SCH ×2 (10:25→18:01)
--- NOTE | 2016-05-20 10:40 | DIAGNOSTIC IMAGING REPORT ---
CHEST ONE VIEW PORTABLE HISTORY: LINE PLACEMENT COMPARISON: Chest 05/20/2016. FINDINGS: The endotracheal tube terminates 8 mm from the amy. Nasogastric tube terminates below the diaphragm. The tip is not included on this study. There is moderate distention of the gas-filled stomach. Mild elevation the right hemidiaphragm persists. There are low lung volumes. The heart is stable in size. No pneumothorax. No pleural effusions. No evidence for pulmonary edema. Right jugular central venous catheter terminates in the proximal SVC. IMPRESSION: 1. The endotracheal tube terminates 8 mm from the amy. This should be pulled back by approximately 2 to 3 cm. Otherwise, satisfactory support line placement. 2. Low lung volumes with mild elevation of the right hemidiaphragm, unchanged. 3. Moderate distention of the stomach. Electronically signed by: Bc Judge M.D. 05/20/2016 10:38 AM Dictated Date/Time: 05/20/2016 10:34 AM
--- NOTE | 2016-05-20 10:47 | History and Physical ---
History & Physical Date & Time of Service: May 20, 2016 at 10:11 Chief Complaint: Small Bowel Obstruction Primary Care Physician: Junito Torres MD History of Present Illness 75 year old female who presents to the ER with abdominal and vomiting. Due to patient's underlying dementia, history is limited from her. Family reports that she developed nausea and vomiting last night and has had several episodes of vomiting since then. No reports of hematemesis or coffee ground emesis. She also developed generalized abdominal pain that has been progressively getting worse. Patient had diarrhea yesterday; last normal bowel movement was previous day. No BRBPR or dark tarry stools. Patient takes hydrocodone twice a day. No reports of chest pain or shortness of breath. No lightheadedness, dizziness, diaphoresis, or syncopal events. Denies urinary symptoms. No fever or chills. In the ER, CT abd/pelvis is showing SBO. Patient was treated with IV morphine and Zofran. NG tube insertion attempt was unsuccessful. I got a call from nurse nayae SBO consult. now pt is just transfered to ICU base on pt 's condition is worse, lower BP 80 mmhg. pt is intubated now, I can only reviewed ER and progress note, I reviewed CXR and CT scan and labs, once pt had intubation and IV fluid, now BP 132/62, HR 102, O2 sat 96%. Past Medical/Surgical History Medical Problems: (1) Anxiety Status: Chronic (2) Bacterial meningitis Status: Resolved (3) CKD (chronic kidney disease), stage III Status: Chronic (4) Dementia Status: Chronic (5) Depression Status: Chronic (6) HTN (hypertension) Status: Chronic (7) Hypothyroidism Status: Chronic Surgical Problems: (1) S/P hysterectomy Status: Chronic Family History FH: cancer MOTHER Social History Smoking Status: Never Smoker Smokeless Tobacco Use: No Alcohol Use: none Drug Use: none Marital Status: Housing status: lives with family Occupational Status: retired Immunizations History of Influenza Vaccine: Yes Influenza Vaccine Date: Feb 04, 2016 History of Tetanus Vaccine?: Yes Tetanus Immunization Date: Oct 17, 2008 History of Pneumococcal: Yes Pneumococcal Date: Oct 21, 2015 Multi-Drug Resistant Organisms History of MDRO: No Allergies Coded Allergies: Adhesives (Verified Adverse Reaction, Unknown, SKIN TEARS, 05/19/16) Home Medications Scheduled Aspirin (Aspirin EC Low Dose), 81 MG PO QAM Cholecalciferol (Vitamin D3), 50,000 UNITS PO WEEKLY Cyanocobalamin (Vitamin B-12), 1,000 MCG SC MONTHLY Donepezil Hydrochloride (Donepezil Hcl), 1 TAB PO HS Duloxetine HCl (Duloxetine HCl), 60 MG PO QAM Fluticasone Propionate (Flovent Hfa), 2 PUFFS INH BID Folic Acid (Folic Acid), 1 MG PO QAM Gabapentin (Neurontin), 1 CAP PO QID Levothyroxine Sodium (Levothyroxine Sodium), 150 MCG PO DAILY Magnesium Oxide (Magnesium-Oxide), 400 MG PO BID Memantine (Namenda), 10 MG PO BID Metoprolol Succ (Toprol Xl) (Toprol-Xl), 25 MG PO DAILY Omeprazole (Prilosec Otc *), 20 MG PO DAILY Scheduled PRN Hydrocodone/Acetaminophen 5MG/325MG ([place] 5MG/325MG), 1 TABLET PO Q6 PRN for Pain Meclizine Hcl (Meclizine Hcl), 1 TAB PO TID PRN for Dizziness or Vertigo Review of Systems Constitutional: + chills, + fever Abdomen: + nausea, + pain, + vomiting Physical Exam Vital Signs Date Time Temp Pulse Resp B/P Pulse Ox O2 Delivery O2 Flow Rate FiO2 05/20/16 07:39 Room Air 05/20/16 02:00 24 05/19/16 23:05 36.3 106 30 115/77 92 Room Air 05/19/16 22:21 123 30 122/57 95 Room Air 05/19/16 20:53 88 20 149/93 95 Room Air 05/19/16 19:30 Room Air 05/19/16 19:30 99 20 149/85 05/19/16 19:30 Room Air 05/19/16 19:02 81 18 136/102 96 Room Air 05/19/16 17:30 37.1 98 20 137/84 97 Room Air General Appearance: + mild distress (appears to be in pain) Head: normocephalic Eyes: normal inspection ENT: hearing grossly normal Neck: supple, no JVD Respiratory/Chest: lungs clear, normal breath sounds, no respiratory distress Cardiovascular: regular rate, rhythm, + pertinent finding (+2 edema BLLE) Abdomen/GI: soft, no organomegaly, no pulsatile mass, normal rectal exam, + tenderness (generalized), + abnormal bowel sounds (hyperactive) Extremities/Musculoskelatal: normal inspection, no calf tenderness Neurologic/Psych: + disoriented (to place and time) Skin: + pertinent finding (scattered scabbed areas noted over face and BLUE) pt is intubated now, could not do neurologic exam, pt had NG tube in 5ooml blood out,UGI bleeding. on abdomen exam- soft, no distend, no skin color change, rectal exam- no rectal bleeding, normal rectal tone, no mass, Diagnostics Laboratory Results Results Past 24 Hours Test 05/19/16 18:50 05/19/16 19:30 05/20/16 07:35 05/20/16 08:20 Range/Units White Blood Count 17.25 30.92 4.8-10.8 K/uL Red Blood Count 4.02 3.54 4.2-5.4 M/uL Hemoglobin 12.4 10.8 12.0-16.0 g/dL Hematocrit 35.9 32.3 37-47 % Mean Corpuscular Volume 89.3 91.2 80-100 fL Mean Corpuscular Hemoglobin 30.8 30.5 25-34 pg Mean Corpuscular Hemoglobin Concent 34.5 33.4 32-36 g/dl Platelet Count 214 198 130-400 K/uL Mean Platelet Volume 10.1 10.9 7.4-10.4 fL Neutrophils (%) (Auto) 80.2 % Lymphocytes (%) (Auto) 10.0 % Monocytes (%) (Auto) 9.2 % Eosinophils (%) (Auto) 0.0 % Basophils (%) (Auto) 0.0 % Neutrophils # (Auto) 13.84 1.4-6.5 K/uL Lymphocytes # (Auto) 1.73 1.2-3.4 K/uL Monocytes # (Auto) 1.58 0.11-0.59 K/uL Eosinophils # (Auto) 0.00 0-0.5 K/uL Basophils # (Auto) 0.00 0-0.2 K/uL RDW Standard Deviation 50.0 53.8 36.4-46.3 fL RDW Coefficient of Variation 15.3 16.1 11.5-14.5 % Immature Granulocyte % (Auto) 0.6 % Immature Granulocyte # (Auto) 0.10 0.00-0.02 K/uL Sodium Level 141 141 136-145 mmol/L Potassium Level 3.4 4.8 3.5-5.1 mmol/L Chloride Level 104 107 98-107 mmol/L Carbon Dioxide Level 22 17 21-32 mmol/L Anion Gap 15.0 17.0 3-11 mmol/L Blood Urea Nitrogen 31 43 7-18 mg/dl Creatinine 1.60 2.30 0.60-1.20 mg/dl Est Creatinine Clear Calc Drug Dose 38.6 26.9 ml/min Estimated GFR () 36.4 23.5 Estimated GFR (Non- 31.4 20.3 BUN/Creatinine Ratio 19.1 18.8 10-20 Random Glucose 229 192 70-99 mg/dl Estimated Average Glucose 91 mg/dl Hemoglobin A1c 4.8 4.5-5.6 % Calcium Level 9.3 9.1 8.5-10.1 mg/dl Magnesium Level 2.3 1.8-2.4 mg/dl Total Bilirubin 0.8 0.2-1 mg/dl Direct Bilirubin 0.2 0-0.2 mg/dl Aspartate Amino Transf (AST/SGOT) 10 15-37 U/L Alanine Aminotransferase (ALT/SGPT) 23 12-78 U/L Alkaline Phosphatase 102 45-117 U/L Total Protein 8.3 6.4-8.2 gm/dl Albumin 3.9 3.4-5.0 gm/dl Lipase 82 73-393 U/L Urine Color YELLOW Urine Appearance TURBID CLEAR Urine pH 6.5 4.5-7.5 Urine Specific [place] 1.016 1.000-1.030 Urine Protein 1+ NEG Urine Glucose (UA) NEG NEG Urine Ketones TRACE NEG Urine Occult Blood NEG NEG Urine Nitrite NEG NEG Urine Bilirubin NEG NEG Urine Urobilinogen NEG NEG Urine Leukocyte Esterase MODERATE NEG Urine WBC (Auto) 5-10 0-5 /hpf Urine RBC (Auto) 0-4 0-4 /hpf Urine Hyaline Casts (Auto) 5-10 0-5 /lpf Urine Epithelial Cells (Auto) >30 0-5 /lpf Urine Bacteria (Auto) 4+ NEG Bedside Glucose 126 70-90 mg/dl Test 05/20/16 08:51 Range/Units Blood Gas Sample Site R Brachial Bedside Blood Gas pH (LAB) 7.16 7.35-7.45 Bedside Blood Gas pCO2 (LAB) 28 35-46 mmHg Bedside Blood Gas pO2 (LAB) 303 80-95 mmHg Bedside Blood Gas HCO3 (LAB) 10 19-24 meq/L Bedside Blood Gas Total CO2 11 24-31 mEq/l Bedside Blood Gas Base Excess (LAB) -19.0 -9-1.8 meq/L Bedside Blood Gas O2 Saturation 100.0 90-95 % Jose Juan Test NA Oxygen Delivery Device BIPAP Bedside Oxygen Rate (breaths/min) 14 Bedside FiO2 100 % Blood Gas IPAP 15 Diagnostic Radiology I reviewed CT scan and CXR, IMPRESSION: 1. Small bowel obstruction with mesenteric edema and low volume ascites 2. No evidence of free intraperitoneal air 3. No renal, ureteral, or bladder calculi identified. 4. Cholelithiasis IMP, UGI bleeding, SBO, cholelithisis Plan, IV fluid - GI consult for UGI bleeding - t/S RBC - start sozyn + flagyl - repeat CBC now - A-line, ABG - once pt is stable, repeat CT scan abd + pelvis - D/W ICU attending - will F/U. Impression Assessment and Plan IMP, UGI bleeding, SBO, cholelithisis Plan, IV fluid - GI consult for UGI bleeding - t/S RBC - start Zosyn + flagyl, protonix - repeat CBC now - A-line, ABG - once pt is stable, repeat CT scan abd + pelvis - D/W ICU attending - will F/U. Advanced Directives Existing Advance Directive: No Existing Living Will: Yes Existing Power of Institutional Research Coordinator: Yes VTE Prophylaxis VTE Risk Assessment Done? Y/N: Yes Risk Level: Moderate
[2016-05-20 10:54] LABS: ISTAT ARTERIAL BLOOD GAS HCO3 20 meq/L (19-24); ISTAT ARTERIAL BLOOD GAS PCO2 39 mmHg (35-46); ISTAT ARTERIAL BLOOD GAS PO2 317 mmHg (80-95); ISTAT ARTERIAL BLOOD GAS pH 7.32 (7.35-7.45); ISTAT CARBON DIOXIDE 22 mEq/l (24-31); ISTAT HEMATOCRIT 22 % (37-47); ISTAT HEMOGLOBIN 7.5 g/dl (12.0-16.0); ISTAT SODIUM 144 mEq/L (135-144)
[2016-05-20] MEDS ORDERED: PANTOprazole INJ 40 MG in SYRINGE 0 ML IV SCH (11:00)
[2016-05-20 11:32] LABS: INR 1.3 (0.9-1.1); PARTIAL THROMBOPLASTIN RATIO 1.2; PROTHROMBIN TIME (PATIENT) 14.3 SECONDS (9.0-12.0)
--- NOTE | 2016-05-20 11:36 | Progress Note ---
Progress Note Adolescent Specialist: ADITHYA TLC emergently placed under u/s guidance. Patient was then intubated. L femoral arterial line then placed. Dictated procedure notes to follow. Care discussed with Stanley Diaz who has discussed with Dr. Bran and Dr. Guzman. CT abdomen and pelvis pending. ABG improved. Waiting for PRBC availability and transfusion. Dictated addendum to follow.
[2016-05-20 11:43] LABS: HEMATOCRIT 27.2 % (37-47); MEAN CORPUSCULAR HEMOGLOBIN 30.8 pg (25-34); MEAN CORPUSCULAR HGB CONC 33.8 g/dl (32-36); MEAN PLATELET VOLUME 10.7 fL (7.4-10.4); PLATELET COUNT 154 K/uL (130-400); RED BLOOD COUNT 2.99 M/uL (4.2-5.4); WHITE BLOOD COUNT 35.58 K/uL (4.8-10.8)
[2016-05-20] MEDS ORDERED: ALBUT/IPRATROP 3MG/0.5MG NEB 3 ML VIAL INH SCH (12:00)
--- NOTE | 2016-05-20 12:18 | DIAGNOSTIC IMAGING REPORT ---
CT SCAN OF THE ABDOMEN AND PELVIS WITHOUT CONTRAST CLINICAL HISTORY: Small bowel obstruction. Gastrointestinal hemorrhage. Evaluate for perforation. COMPARISON STUDY: 05/19/2016 TECHNIQUE: CT scan of the abdomen and pelvis was performed from the lung bases to the proximal femurs. Images are reviewed in the axial, sagittal, and coronal planes. IV contrast was not administered for this examination. CT DOSE: 2544.29 mGy.cm FINDINGS: Lower chest: There are bibasal atelectatic changes. There are coronary artery calcifications. Liver: There is increasing perihepatic fluid. There is portal venous gas. No focal masses are visualized. Gallbladder: There is progressive gallbladder distention. Multiple calculi are visualized. Spleen: Normal in size and attenuation. Pancreas: Unremarkable. Adrenal glands: There is stable adrenal gland thickening Kidneys: No renal, ureteral, or bladder calculi are visualized Bowel: There are dilated small bowel loops with multiple air-fluid levels. There is mesenteric edema. There is mesenteric venous gas. The findings are suggestive of a small bowel obstruction with bowel ischemia. There is been interval placement of a nasogastric tube. Peritoneum: No free air is visualized. There is increasing pelvic fluid. This appears hyperdense and may be hemorrhagic Vasculature: The abdominal aorta is normal in course and caliber. Adenopathy: None. Pelvic viscera: There is residual a Franco catheter. There is air within the bladder likely iatrogenic. There is been interval placement of a left femoral line. Skeletal structures: No destructive osseous lesions are seen. IMPRESSION: 1. Continued evidence for a small bowel obstruction. There is increasing ascites which is hyperdense and likely hemorrhagic. There is progressive mesenteric edema. There has been interval development of mesenteric venous gas and portal venous gas. The findings are highly suggestive of ischemic bowel. The findings were discussed with the ordering clinician. 2. Cholelithiasis and gallbladder distention 3. Interval placement of a nasogastric tube and left femoral catheter Electronically signed by: Ildefonso Craig M.D. 05/20/2016 12:16 PM Dictated Date/Time: 05/20/2016 12:08 PM
--- NOTE | 2016-05-20 12:40 | Surgery Progress Note ---
Surgery Progress Note Date of Service May 20, 2016. Subjective pt had CT [id number]: 1. Continued evidence for a small bowel obstruction. There is increasing ascites which is hyperdense and likely hemorrhagic. There is progressive mesenteric edema. There has been interval development of mesenteric venous gas and portal venous gas. The findings are highly suggestive of ischemic bowel. The findings were discussed with the ordering clinician. 2. Cholelithiasis and gallbladder distention 3. Interval placement of a nasogastric tube and left femoral catheter I reviewed CT scan and agree with the report. ICU and I update information to pt 's family members, pt is still have UGI bleeding, NGT- 1000ml blood, and possible ischemic ( or necrotic)bowel, pt is survival for surgery, pt's family members want to do comfortable care only without surgery. pt's family members mentioned, pt dose not want to intubation. Objective Vital Signs: Date Time Temp Pulse Resp B/P Pulse Ox O2 Delivery O2 Flow Rate FiO2 05/20/16 10:35 100 05/20/16 08:30 123 94 100 05/20/16 07:39 Room Air 05/20/16 02:00 24 05/19/16 23:05 36.3 106 30 115/77 92 Room Air 05/19/16 22:21 123 30 122/57 95 Room Air 05/19/16 20:53 88 20 149/93 95 Room Air 05/19/16 19:30 Room Air 05/19/16 19:30 99 20 149/85 05/19/16 19:30 Room Air 05/19/16 19:02 81 18 136/102 96 Room Air 05/19/16 17:30 37.1 98 20 137/84 97 Room Air Laboratory Results: Results Past 24 Hours Test 05/19/16 18:50 05/19/16 19:30 05/20/16 07:35 05/20/16 08:20 Range/Units White Blood Count 17.25 30.92 4.8-10.8 K/uL Red Blood Count 4.02 3.54 4.2-5.4 M/uL Hemoglobin 12.4 10.8 12.0-16.0 g/dL Hematocrit 35.9 32.3 37-47 % Mean Corpuscular Volume 89.3 91.2 80-100 fL Mean Corpuscular Hemoglobin 30.8 30.5 25-34 pg Mean Corpuscular Hemoglobin Concent 34.5 33.4 32-36 g/dl Platelet Count 214 198 130-400 K/uL Mean Platelet Volume 10.1 10.9 7.4-10.4 fL Neutrophils (%) (Auto) 80.2 % Lymphocytes (%) (Auto) 10.0 % Monocytes (%) (Auto) 9.2 % Eosinophils (%) (Auto) 0.0 % Basophils (%) (Auto) 0.0 % Neutrophils # (Auto) 13.84 1.4-6.5 K/uL Lymphocytes # (Auto) 1.73 1.2-3.4 K/uL Monocytes # (Auto) 1.58 0.11-0.59 K/uL Eosinophils # (Auto) 0.00 0-0.5 K/uL Basophils # (Auto) 0.00 0-0.2 K/uL RDW Standard Deviation 50.0 53.8 36.4-46.3 fL RDW Coefficient of Variation 15.3 16.1 11.5-14.5 % Immature Granulocyte % (Auto) 0.6 % Immature Granulocyte # (Auto) 0.10 0.00-0.02 K/uL Sodium Level 141 141 136-145 mmol/L Potassium Level 3.4 4.8 3.5-5.1 mmol/L Chloride Level 104 107 98-107 mmol/L Carbon Dioxide Level 22 17 21-32 mmol/L Anion Gap 15.0 17.0 3-11 mmol/L Blood Urea Nitrogen 31 43 7-18 mg/dl Creatinine 1.60 2.30 0.60-1.20 mg/dl Est Creatinine Clear Calc Drug Dose 38.6 26.9 ml/min Estimated GFR () 36.4 23.5 Estimated GFR (Non- 31.4 20.3 BUN/Creatinine Ratio 19.1 18.8 10-20 Random Glucose 229 192 70-99 mg/dl Estimated Average Glucose 91 mg/dl Hemoglobin A1c 4.8 4.5-5.6 % Calcium Level 9.3 9.1 8.5-10.1 mg/dl Magnesium Level 2.3 1.8-2.4 mg/dl Total Bilirubin 0.8 0.2-1 mg/dl Direct Bilirubin 0.2 0-0.2 mg/dl Aspartate Amino Transf (AST/SGOT) 10 15-37 U/L Alanine Aminotransferase (ALT/SGPT) 23 12-78 U/L Alkaline Phosphatase 102 45-117 U/L Total Protein 8.3 6.4-8.2 gm/dl Albumin 3.9 3.4-5.0 gm/dl Lipase 82 73-393 U/L Urine Color YELLOW Urine Appearance TURBID CLEAR Urine pH 6.5 4.5-7.5 Urine Specific [place] 1.016 1.000-1.030 Urine Protein 1+ NEG Urine Glucose (UA) NEG NEG Urine Ketones TRACE NEG Urine Occult Blood NEG NEG Urine Nitrite NEG NEG Urine Bilirubin NEG NEG Urine Urobilinogen NEG NEG Urine Leukocyte Esterase MODERATE NEG Urine WBC (Auto) 5-10 0-5 /hpf Urine RBC (Auto) 0-4 0-4 /hpf Urine Hyaline Casts (Auto) 5-10 0-5 /lpf Urine Epithelial Cells (Auto) >30 0-5 /lpf Urine Bacteria (Auto) 4+ NEG Bedside Glucose 126 70-90 mg/dl Test 05/20/16 08:51 05/20/16 10:39 05/20/16 11:11 Range/Units Blood Gas Sample Site R Brachial Bedside Blood Gas pH (LAB) 7.16 7.32 7.35-7.45 Bedside Blood Gas pCO2 (LAB) 28 39 35-46 mmHg Bedside Blood Gas pO2 (LAB) 303 317 80-95 mmHg Bedside Blood Gas HCO3 (LAB) 10 20 19-24 meq/L Bedside Blood Gas Total CO2 11 22 24-31 mEq/l Bedside Blood Gas Base Excess (LAB) -19.0 -6.0 -9-1.8 meq/L Bedside Blood Gas O2 Saturation 100.0 100.0 90-95 % Jose Juan Test NA Oxygen Delivery Device BIPAP Bedside Oxygen Rate (breaths/min) 14 Bedside FiO2 100 % Blood Gas IPAP 15 Bedside Hemoglobin 7.5 12.0-16.0 g/dl Bedside Hematocrit 22 37-47 % Bedside Sodium 144 135-144 mEq/L Bedside Potassium 3.6 3.3-5.0 mEq/L White Blood Count 35.58 4.8-10.8 K/uL Red Blood Count 2.99 4.2-5.4 M/uL Hemoglobin 9.2 12.0-16.0 g/dL Hematocrit 27.2 37-47 % Mean Corpuscular Volume 91.0 80-100 fL Mean Corpuscular Hemoglobin 30.8 25-34 pg Mean Corpuscular Hemoglobin Concent 33.8 32-36 g/dl RDW Standard Deviation 53.3 36.4-46.3 fL RDW Coefficient of Variation 16.0 11.5-14.5 % Platelet Count 154 130-400 K/uL Mean Platelet Volume 10.7 7.4-10.4 fL Prothrombin Time 14.3 9.0-12.0 SECONDS Prothromb Time International Ratio 1.3 0.9-1.1 Activated Partial Thromboplast Time 29.9 21.0-31.0 SECONDS Partial Thromboplastin Ratio 1.2
--- NOTE | 2016-05-20 13:05 | Gastrointestinal Consultation ---
Gastrointestinal Consultation Date of Consultation: May 20, 2016 Consulting Physician: Dr. Guzman Reason for Consultation: SBO, acute GI bleed History of Present Illness Patient is a 75 year old female with past medical history significant for hypertension, hypothyroidism, depression, ulcer disease on 20 mg of omeprazole, anxiety, CKD and dementia. She was admitted last night for a SBO, surgery was consulted. On admission, the patient presented with abdominal pain/nausea/ vomiting/diarrhea (2-3 days) and cold symptoms (for about 2-3 weeks). At that time, there was no evidence of black/bloody emesis or stools. Labs were remarkable for WBC: 17.25, Plt: 214 Hgb: 12.4 Hct: 35.9, BUN: 31, Technical Illustrations Map Inker: 1.6, AST : 10, ALT: 23, AlkP: 102. The patient was transferred this morning to the ICU as her conditioned worsened. GI was consulted this morning at 10:45 for evaluation of GI bleed. At this time her labs were remarkable for WBC: 35.58, Plt: 154 Hgb: 9.2 Hct: 27.2, BUN: 43, Technical Illustrations Map Inker: 2.3, AST: pending, ALT: pending , AlkP: pending. The patient was intubated with an OG tube placed, an arterial line placed and started on IV PPI prior to GI exam at 11am. OG tube with immediate relief of 800cc of jaylan colored blood. There is a report of a history of ulcer disease. ROS was not obtained due to intubation. Physical exam significant for soft, non-distended abdomen. Heart regular in rate and rhythm. The case was discussed with Dr. Farris (surgery) and Stanley Diaz. Abd/Pelvis CT 05/19/2016 at 18:34 : There is a distended stomach. There are multiple mildly dilated small bowel loops containing multiple air-fluid levels. The distal small bowel is of normal caliber. The findings are indicative of a small bowel obstruction. There is mild tethering of the small bowel loops centrally. No free air is visualized. There are no findings to indicate acute diverticulitis. There are no findings to indicate acute appendicitis. Abd/Pelvis CT 05/20/2016 at 11:27 : Pending Past Medical/Surgical History Medical Problems: (1) Small bowel obstruction Status: Acute Family History FH: cancer MOTHER Social History Smoking Status: Never Smoker Alcohol Use: none Drug Use: none Marital Status: Occupation Status: retired Allergies Coded Allergies: Adhesives (Verified Adverse Reaction, Unknown, SKIN TEARS, 05/19/16) Current Medications Home Meds and Scripts Medications Dose Route/Sig Max Daily Dose Days Date Category Dose Instructions Levothyroxine Sodium 100 Mcg Tab 150 Mcg PO DAILY 30 05/19/16 Reported Duloxetine HCl 20 Mg Cap 60 Mg PO QAM 05/19/16 Rx Neurontin (Gabapentin) 400 Mg Cap 1 Cap PO QID 30 12/22/15 Reported Meclizine Hcl 25 Mg Tab 1 Tab PO TID PRN 30 12/22/15 Reported Flovent Hfa (Fluticasone Propionate) 120 Puffs/33358 Mcg Aero 2 Puffs INH BID 30 12/22/15 Reported Namenda (Memantine) 10 Mg Tab 10 Mg PO BID 12/22/15 Reported Vitamin D3 (Cholecalciferol) 10,000 Unit Cap 50,000 Units PO WEEKLY 12/22/15 Reported Donepezil Hcl (Donepezil Hydrochloride) 5 Mg Tab 1 Tab PO HS 30 12/22/15 Reported Folic Acid 1 Mg Tab 1 Mg PO QAM 30 03/16/15 Rx Magnesium-Oxide (Magnesium Oxide) 400 Mg Tab 400 Mg PO BID 3 03/16/15 Rx Aspirin EC Low Dose (Aspirin) 81 Mg Ectab 81 Mg PO QAM 03/16/15 Rx Toprol-Xl (Metoprolol Succinate) 50 Mg Tabcr 25 Mg PO DAILY 03/16/15 Rx [place] 5MG/325MG (Acetaminophen/Hydrocodone Bitart) Tab 1 Tablet PO Q6 PRN 03/10/15 Reported PRN PAIN Vitamin B-12 (Cyanocobalamin) 1,000 Mcg Tab 1,000 Mcg SC MONTHLY 08/15/13 Reported Prilosec Otc * (Omeprazole) 20 Mg Tabcr 20 Mg PO DAILY 10/30/07 Reported Review of Systems ROS not obtained secondary to intubation. Physical Exam Date Time Temp Pulse Resp B/P Pulse Ox O2 Delivery O2 Flow Rate FiO2 05/20/16 10:35 100 05/20/16 08:30 123 94 100 05/20/16 07:39 Room Air 05/20/16 02:00 24 05/19/16 23:05 36.3 106 30 115/77 92 Room Air 05/19/16 22:21 123 30 122/57 95 Room Air 05/19/16 20:53 88 20 149/93 95 Room Air 05/19/16 19:30 Room Air 05/19/16 19:30 99 20 149/85 05/19/16 19:30 Room Air 05/19/16 19:02 81 18 136/102 96 Room Air 05/19/16 17:30 37.1 98 20 137/84 97 Room Air General Appearance: no apparent distress (patient is intubated, having received fentanyl and propofol prior to examination ), + obese Neck: trachea midline Respiratory/Chest: no respiratory distress, no accessory muscle use, + pertinent finding (patient is intubated) Cardiovascular: regular rate, rhythm, no edema, no gallop, no JVD, no murmur Abdomen: non tender, soft, no organomegaly, no pulsatile mass, + abnormal bowel sounds (no BS) Skin: normal color, no jaundice, warm/dry, no rash Laboratory Results Last 24 Hours Test 05/19/16 18:50 05/19/16 19:30 05/20/16 07:35 05/20/16 08:20 White Blood Count 17.25 K/uL 30.92 K/uL Red Blood Count 4.02 M/uL 3.54 M/uL Hemoglobin 12.4 g/dL 10.8 g/dL Hematocrit 35.9 % 32.3 % Mean Corpuscular Volume 89.3 fL 91.2 fL Mean Corpuscular Hemoglobin 30.8 pg 30.5 pg Mean Corpuscular Hemoglobin Concent 34.5 g/dl 33.4 g/dl Platelet Count 214 K/uL 198 K/uL Mean Platelet Volume 10.1 fL 10.9 fL Neutrophils (%) (Auto) 80.2 % Lymphocytes (%) (Auto) 10.0 % Monocytes (%) (Auto) 9.2 % Eosinophils (%) (Auto) 0.0 % Basophils (%) (Auto) 0.0 % Neutrophils # (Auto) 13.84 K/uL Lymphocytes # (Auto) 1.73 K/uL Monocytes # (Auto) 1.58 K/uL Eosinophils # (Auto) 0.00 K/uL Basophils # (Auto) 0.00 K/uL RDW Standard Deviation 50.0 fL 53.8 fL RDW Coefficient of Variation 15.3 % 16.1 % Immature Granulocyte % (Auto) 0.6 % Immature Granulocyte # (Auto) 0.10 K/uL Sodium Level 141 mmol/L 141 mmol/L Potassium Level 3.4 mmol/L 4.8 mmol/L Chloride Level 104 mmol/L 107 mmol/L Carbon Dioxide Level 22 mmol/L 17 mmol/L Anion Gap 15.0 mmol/L 17.0 mmol/L Blood Urea Nitrogen 31 mg/dl 43 mg/dl Creatinine 1.60 mg/dl 2.30 mg/dl Est Creatinine Clear Calc Drug Dose 38.6 ml/min 26.9 ml/min Estimated GFR () 36.4 23.5 Estimated GFR (Non- 31.4 20.3 BUN/Creatinine Ratio 19.1 18.8 Random Glucose 229 mg/dl 192 mg/dl Estimated Average Glucose 91 mg/dl Hemoglobin A1c 4.8 % Calcium Level 9.3 mg/dl 9.1 mg/dl Magnesium Level 2.3 mg/dl Total Bilirubin 0.8 mg/dl Direct Bilirubin 0.2 mg/dl Aspartate Amino Transf (AST/SGOT) 10 U/L Alanine Aminotransferase (ALT/SGPT) 23 U/L Alkaline Phosphatase 102 U/L Total Protein 8.3 gm/dl Albumin 3.9 gm/dl Lipase 82 U/L Urine Color YELLOW Urine Appearance TURBID Urine pH 6.5 Urine Specific [place] 1.016 Urine Protein 1+ Urine Glucose (UA) NEG Urine Ketones TRACE Urine Occult Blood NEG Urine Nitrite NEG Urine Bilirubin NEG Urine Urobilinogen NEG Urine Leukocyte Esterase MODERATE Urine WBC (Auto) 5-10 /hpf Urine RBC (Auto) 0-4 /hpf Urine Hyaline Casts (Auto) 5-10 /lpf Urine Epithelial Cells (Auto) >30 /lpf Urine Bacteria (Auto) 4+ Bedside Glucose 126 mg/dl Test 05/20/16 08:51 05/20/16 10:39 05/20/16 11:11 Blood Gas Sample Site R Brachial Bedside Blood Gas pH (LAB) 7.16 7.32 Bedside Blood Gas pCO2 (LAB) 28 mmHg 39 mmHg Bedside Blood Gas pO2 (LAB) 303 mmHg 317 mmHg Bedside Blood Gas HCO3 (LAB) 10 meq/L 20 meq/L Bedside Blood Gas Total CO2 11 mEq/l 22 mEq/l Bedside Blood Gas Base Excess (LAB) -19.0 meq/L -6.0 meq/L Bedside Blood Gas O2 Saturation 100.0 % 100.0 % Jose Juan Test NA Oxygen Delivery Device BIPAP Bedside Oxygen Rate (breaths/min) 14 Bedside FiO2 100 % Blood Gas IPAP 15 Bedside Hemoglobin 7.5 g/dl Bedside Hematocrit 22 % Bedside Sodium 144 mEq/L Bedside Potassium 3.6 mEq/L White Blood Count 35.58 K/uL Red Blood Count 2.99 M/uL Hemoglobin 9.2 g/dL Hematocrit 27.2 % Mean Corpuscular Volume 91.0 fL Mean Corpuscular Hemoglobin 30.8 pg Mean Corpuscular Hemoglobin Concent 33.8 g/dl RDW Standard Deviation 53.3 fL RDW Coefficient of Variation 16.0 % Platelet Count 154 K/uL Mean Platelet Volume 10.7 fL Prothrombin Time 14.3 SECONDS Prothromb Time International Ratio 1.3 Activated Partial Thromboplast Time 29.9 SECONDS Partial Thromboplastin Ratio 1.2 Impression Patient is a 75 year old female with a new upper GI bleed in the setting of a small bowel obstruction, mesenteric edema and low volume ascites. Will review and re-evaluate repeated CT abd/pelvis when report is finalized. Differentials include peptic ulcer disease, ischemic bowel, bowel perforation, gastritis. This is likely ischemic bowel, extending throughout the bowel. Endoscopy is not indicated at this time currently. Plan GI bleed is likely secondary to ischemia as opposed to ulcer disease. A repeat CT abd/pelvis was ordered for re-evaluation and report is pending. This case has been discussed with Dr. Farris (surgery) and ICU staff including Stanley Diaz. GI will continue to follow and offer input as appropriate. Please call with any questions or concerns. ATTESTATION: I have performed a history and physical examination of this patient and reviewed the electronic record. Specifically, on physical examination the patient is intubated and obtunded on pressors. Abdomen is sort. Review of repeat CT scan with radiologist showed portal venous air. I have discussed the case with DANIELLA Sy as well as with the ICU team and Dr. Bran. There is no role at this time for endoscopy. The above note reflects my findings , conclusions, and recommendations. Marcus Guzman MD
[2016-05-20 13:26] LABS: BUN/CREATININE RATIO 19.1 (10-20); CALCIUM 7.5 mg/dl (8.5-10.1); CREATININE 2.4 mg/dl (0.60-1.20); MAGNESIUM 2.5 mg/dl (1.8-2.4); POTASSIUM 3.7 mmol/L (3.5-5.1)
[2016-05-20 14:05] LABS: ALB/GLOB RATIO 0.8 (0.9-2); PHOSPHORUS 2.3 mg/dl (2.5-4.9)
[2016-05-20] MEDS ORDERED: MoRPHine SULF/NSS 250MG/250ML 250 ML IV PRN (14:30)
[2016-05-20] MEDS ORDERED: MoRPHine SULFATE 4 MG/ML 1 ML CARP\\VIAL IV PRN ×2 (14:30→21:15)
[2016-05-20] MEDS ORDERED: MoRPHine SULFATE 2 MG/ML CARP ONE (14:59)
[2016-05-20] MEDS ORDERED: MoRPHine SULF/NSS INJ 1 MG/ML 250 ML BTL ONE (15:01)
[2016-05-20] MEDS ORDERED: PIPERACILL/TAZOBAC IV 4.5 GM in DEXTROSE 5% 100ML IV SCH (16:00)
[2016-05-20 16:26] LABS: INFLUENZA A PCR Neg for Influ A (NEG); INFLUENZA B PCR Neg for Influ B (NEG)
[2016-05-20] MEDS ORDERED: FENTANYL CITRATE INJ 50 MCG/1 ML 2 ML VIAL IV ONE (16:30)
[2016-05-20] MEDS ORDERED: NOREPINEPHRINE BIT INJ 16 MG in DEXTROSE 5% 500ML 500 ML IV PRN (17:15)
[2016-05-20] MEDS: IPRATROPIUM BROMIDE HFA INHALER INH SCH ×2 (17:45→19:52)
[2016-05-20] MEDS: ALBUTEROL HFA 8 GM INHALER INH SCH ×2 (17:45→19:52)
--- NOTE | 2016-05-20 18:27 | Procedure Note ---
Procedure Note Procedure Date May 20, 2016. Procedure Description Procedure Name: Endotracheal Intubation Consent obtained: emergent consent implied Time of procedure: 10:00 Performed by: attending Indications: therapeutic Contraindications: none Description: The patient was preoxygenated with 100% FIO2. She was given 50mgc of fentanyl IV and 5cc propofol IV. She was bagged using 100% O2 and a 3 Mac blade was used to directly visualize the vocal cords and pass a 7.5 ETT under direct visualization. The stylet was removed and the cuff inflated. +BS bilaterally and + CO2 detector. The tube was taped in place at 24cm. F/U CXR showed the tube to be slightly deep although not in the R mainstem. It was pulled back to 22cm. Oxygen saturations were not able to be followed periprocedure due to hypotension and inability for the device to waste picker a saturation. Once the tube was placed and hypotension improved, O2 sats were 98% Complications: none Patient tolerated procedure: well Post-procedure vital signs: reviewed and stable
[2016-05-20] MEDS ORDERED: PROPOFOL IV EMULSION 10 MG/ML 100 ML VIAL IV PRN (19:08)
[2016-05-20] MEDS ORDERED: PROPOFOL IV EMULSION 10 MG/ML 100 ML VIAL IV SCH (19:15)
[2016-05-20] MEDS ORDERED: LORAZEPAM 2 MG/ML 1 ML VIAL ONE (20:52)
[2016-05-20] MEDS ORDERED: LORAZEPAM 2 MG/ML 1 ML VIAL IV PRN ×2 (21:00)
[2016-05-20] MEDS ORDERED: SCOPOLAMINE 1.5 MG TDSY TD SCH (21:00)
[2016-05-20] MEDS ORDERED: MoRPHine SULFATE 2 MG/ML CARP IV PRN (21:15)
[2016-05-20] MEDS ORDERED: LORAZEPAM 2 MG/ML 1 ML VIAL IV ONE (21:15)
--- NOTE | 2016-05-20 21:23 | Progress Note ---
Progress Note [place] Man: Family has gathered and is ready to formally change goals of care to comfort. I discussed the process weaning the ventilator and the use of morphine and ativan to promote comfort. I told them we would take her off the monitor in the room and work toward extubation once she is off levophed. Will d/c pulse ox and BP cuff and cap arterial line. Wean peep, fio2 and rate before changing to cpap. Morphine infusion is running now at 10mg per hour and she is tachypneic. Ativan just given. Scopolamine and atropine SL also ordered for secretions/comfort. Would like to d/c propofol but she isn't really comfortable even on it. I told them I did not know how long she will live or how things may unfold tonight. Discussed plan with Alicia VICTOR and will also discuss with RT. Optimally, I would like to see her extubated within about an hour but that may not be possible - and I did tell the family that. I will sign out to Dr. Link and am available by phone.
--- NOTE | 2016-05-20 21:24 | Progress Note ---
Progress Note Addendum to progress note just completed. Critical Care Time 40 min.
[2016-05-20] MEDS ORDERED: ATROPINE SULFATE 1% OP SOLN 5 ML BTL SL PRN (21:30)
--- NOTE | 2016-05-20 23:00 | OPERATIVE REPORT ---
DATE OF OPERATION: 05/20/2016 PROCEDURE: The right internal jugular triple lumen catheter placement. PREPROCEDURE DIAGNOSIS: Shock. POSTPROCEDURE DIAGNOSIS: Same. INDICATIONS FOR PROCEDURE: Need for reliable IV access for vasopressors and fluid resuscitation. TIME OF PROCEDURE: 9:15 a.m. DESCRIPTION OF PROCEDURE: This procedure was done emergently secondary to the patient's overall critical clinical status and lack of reliable IV access. She had one IV in her shoulder. She was hypotensive and tachycardic. A timeout was performed. I donned a hat, mask, sterile gown and sterile gloves. I prepared the right neck, chest and shoulder with chlorhexidine. This was allowed to dry before I draped the patient from head to toe in sterile fashion. The right internal jugular vein was identified using ultrasound and 2 mL of 1% lidocaine was used to numb the skin adjacent to the right internal jugular vein. I then used an 18-gauge needle to cannulate the right internal jugular vein under ultrasound guidance. I was able to cannulate the vein at least 3 times, but had difficulty passing the wire. I also had some difficulty cannulating the vessel with the ultrasound due to the patient's flabby neck. Eventually, I was able to pass a wire through the needle and the needle was removed. A #11 scalpel blade was used to make a ernie in the skin adjacent to the wire. The vein was then dilated over the wire and then the dilator was removed. The triple lumen catheter was placed over the wire and the wire was removed. All 3 ports had good blood flow and flushed easily. The line was then sutured into place using 3-0 silk on a straight needle. There were no complications. Follow up chest x-ray shows no pneumothorax and the tip of the triple lumen catheter to be right at the right atrium. Hemostasis was achieved. I attest to the content of the Intraoperative Record and any orders documented therein. Any exceptio ns are noted below.
--- NOTE | 2016-05-20 23:03 | OPERATIVE REPORT ---
DATE OF OPERATION: 05/20/2016 PROCEDURE: Left femoral arterial line placement. PREOPERATIVE DIAGNOSIS: Septic shock. POSTPROCEDURE DIAGNOSIS: Same. INDICATIONS FOR PROCEDURE: Need for continuous blood pressure monitoring and frequent arterial blood gases. TIME OF PROCEDURE: 10:30 a.m. DESCRIPTION OF PROCEDURE: A timeout was performed. This procedure was done emergently due to the patient's critical illness and ongoing hypotension. Consent was implied. I donned a hat, mask, sterile gown and sterile gloves and prepared the left groin, thigh and left lower quadrant with chlorhexidine. I then draped the patient in sterile fashion. I used 2 mL of 1% lidocaine to numb the skin adjacent to the left femoral artery which identified by ultrasound. I used a 20-gauge needle to cannulate the artery on the second pass. The wire was placed through the needle and the needle was removed. A 10 cm arrow arterial catheter was then placed over the wire and the wire was removed. This was attached to a transducer. The line was then sutured into place. As I was pulling off the dressing, part of the line became dislodged. I was concerned that it would not be stable and might pull all the way out. I changed my gloves and clean the area with chlorhexidine. I then cut the suture attached to the line. The draped was removed and after changing my gloves, I redraped the area. I used a new kit and the wire within the kit to place into the unstable arterial line. The first catheter was taken out and I thread a new catheter over the wire. The wire was removed. The line was then attached to a transducer the tubing of which had also been changed. It was sutured in place but 3-0 silk on a straight needle. Hemostasis was achieved and there were no complications. I attest to the content of the Intraoperative Record and any orders documented therein. Any exceptio ns are noted below.
--- NOTE | 2016-05-20 23:23 | Progress Note ---
Progress Note At around 8 in the morning patient's general condition deteriorated with Unaffordable BP deterioration in mental status Fluid bolus and pressors agent started and the patient was transferred to ICU and intubated Repeat CT of the abdomen and Pelvis consistent with Ischemic Bowel IV antibiotics were started as well Urgent Surgery ,GI and Plumbing Contractor consultation were obtained by the Attending Family members were updated about the critical condition Condition deteriorated further:I personally talked to the Family members and updated her condition in ER -Everybody understanding Planned Extubation was done and the patine ceased to Breath at 10:58 PM Talked to the family members again. O/E No response to any stimuli Pupils are widely dilated and fixed No Breathing and no Heart sound The patient was pronounced on 05/20/2016 at 2258 Hours Cause of -Ischemic Bowel Dr Ramon Zaman
[2016-05-21] MEDS ORDERED: CHECK SCOPOLAMINE PATCH PLACEMENT SCH
[2016-05-21] MEDS ORDERED: SODIUM BICARB 8.4% INJ 50 MEQ/50 ML SYR IV ONE (00:29)
--- NOTE | 2016-05-21 07:55 | Discharge Summary ---
Discharge Summary Admission Date: May 19, 2016 at 20:27 Discharge Date: May 20, 2016 Discharge Disposition: Principal Diagnosis: Cause of :1Ischemic Bowel 2.Small Bowel Obstruction Secondary Diagnoses/Problems: Please see H&P Procedures: Mechanical Ventilation Consultations: Learning Center Instructor,GI and Surgery Admission Information HPI (per Admitting provider): 75 year old female who presents to the ER with abdominal and vomiting. Due to patient's underlying dementia, history is limited from her. Family reports that she developed nausea and vomiting last night and has had several episodes of vomiting since then. No reports of hematemesis or coffee ground emesis. She also developed generalized abdominal pain that has been progressively getting worse. Patient had diarrhea yesterday; last normal bowel movement was previous day. No BRBPR or dark tarry stools. Patient takes hydrocodone twice a day. No reports of chest pain or shortness of breath. No lightheadedness, dizziness, diaphoresis, or syncopal events. Denies urinary symptoms. No fever or chills. In the ER, CT abd/pelvis is showing SBO. Patient was treated with IV morphine and Zofran. NG tube insertion attempt was unsuccessful. I got a call from nurse núñez SBO consult. now pt is just transfered to ICU base on pt 's condition is worse, lower BP 80 mmhg. pt is intubated now, I can only reviewed ER and progress note, I reviewed CXR and CT scan and labs, once pt had intubation and IV fluid, now BP 132/62, HR 102, O2 sat 96%. Past Medical/Surgical History Medical Problems: (1) Anxiety Status: Chronic (2) Bacterial meningitis Status: Resolved (3) CKD (chronic kidney disease), stage III Status: Chronic (4) Dementia Status: Chronic (5) Depression Status: Chronic (6) HTN (hypertension) Status: Chronic (7) Hypothyroidism Status: Chronic Surgical Problems: (1) S/P hysterectomy Status: Chronic Family History FH: cancer MOTHER Social History Smoking Status: Former Smoker Alcohol Use: none Housing status: lives with family Immunizations History of Influenza Vaccine: Yes Influenza Vaccine Date: Feb 04, 2016 History of Tetanus Vaccine?: Yes Tetanus Immunization Date: Oct 17, 2008 History of Pneumococcal: Yes Pneumococcal Date: Oct 21, 2015 Multi-Drug Resistant Organisms History of MDRO: No Allergies Coded Allergies: Adhesives (Verified Adverse Reaction, Unknown, SKIN TEARS, 1/12/17) Home Medications Scheduled Aspirin (Aspirin EC Low Dose), 81 MG PO QAM Cholecalciferol (Vitamin D3), 50,000 UNITS PO WEEKLY Cyanocobalamin (Vitamin B-12), 1,000 MCG SC MONTHLY Donepezil Hydrochloride (Donepezil Hcl), 1 TAB PO HS Duloxetine HCl (Duloxetine HCl), 60 MG PO QAM Fluticasone Propionate (Flovent Hfa), 2 PUFFS INH BID Folic Acid (Folic Acid), 1 MG PO QAM Gabapentin (Neurontin), 1 CAP PO QID Levothyroxine Sodium (Levothyroxine Sodium), 150 MCG PO DAILY Magnesium Oxide (Magnesium-Oxide), 400 MG PO BID Memantine (Namenda), 10 MG PO BID Metoprolol Succ (Toprol Xl) (Toprol-Xl), 25 MG PO DAILY Omeprazole (Prilosec Otc *), 20 MG PO DAILY Scheduled PRN Hydrocodone/Acetaminophen 5MG/325MG (Germfask 5MG/325MG), 1 TABLET PO Q6 PRN for Pain Meclizine Hcl (Meclizine Hcl), 1 TAB PO TID PRN for Dizziness or Vertigo Review of Systems 10 point review of systems was completed with patient's family with the pertinent positives and negatives noted per the HPI Physical Ex - H&P Physical Exam Vital Signs Date Time Temp Pulse Resp B/P Pulse Ox O2 Delivery O2 Flow Rate FiO2 05/19/16 20:53 88 20 149/93 95 Room Air 05/19/16 19:02 81 18 136/102 96 Room Air 05/19/16 17:30 37.1 98 20 137/84 97 Room Air General Appearance: + mild distress (appears to be in pain) Head: normocephalic Eyes: normal inspection ENT: hearing grossly normal Neck: supple, no JVD Respiratory/Chest: lungs clear, normal breath sounds, no respiratory distress Cardiovascular: regular rate, rhythm, + pertinent finding (+2 edema BLLE) Abdomen/GI: soft, + tenderness (generalized), + abnormal bowel sounds ( hyperactive) Extremities/Musculoskelatal: normal inspection, no calf tenderness Neurologic/Psych: alert, + disoriented (to place and time) Skin: + pertinent finding (scattered scabbed areas noted over face and BLUE) Diagnostics - H&P Diagnostics Laboratory Results Results Past 24 Hours Test 05/19/16 18:50 05/19/16 19:30 Range/Units White Blood Count 17.25 4.8-10.8 K/uL Red Blood Count 4.02 4.2-5.4 M/uL Hemoglobin 12.4 12.0-16.0 g/dL Hematocrit 35.9 37-47 % Mean Corpuscular Volume 89.3 80-100 fL Mean Corpuscular Hemoglobin 30.8 25-34 pg Mean Corpuscular Hemoglobin Concent 34.5 32-36 g/dl Platelet Count 214 130-400 K/uL Mean Platelet Volume 10.1 7.4-10.4 fL Neutrophils (%) (Auto) 80.2 % Lymphocytes (%) (Auto) 10.0 % Monocytes (%) (Auto) 9.2 % Eosinophils (%) (Auto) 0.0 % Basophils (%) (Auto) 0.0 % Neutrophils # (Auto) 13.84 1.4-6.5 K/uL Lymphocytes # (Auto) 1.73 1.2-3.4 K/uL Monocytes # (Auto) 1.58 0.11-0.59 K/uL Eosinophils # (Auto) 0.00 0-0.5 K/uL Basophils # (Auto) 0.00 0-0.2 K/uL RDW Standard Deviation 50.0 36.4-46.3 fL RDW Coefficient of Variation 15.3 11.5-14.5 % Immature Granulocyte % (Auto) 0.6 % Immature Granulocyte # (Auto) 0.10 0.00-0.02 K/uL Sodium Level 141 136-145 mmol/L Potassium Level 3.4 3.5-5.1 mmol/L Chloride Level 104 98-107 mmol/L Carbon Dioxide Level 22 21-32 mmol/L Anion Gap 15.0 3-11 mmol/L Blood Urea Nitrogen 31 7-18 mg/dl Creatinine 1.60 0.60-1.20 mg/dl Est Creatinine Clear Calc Drug Dose 38.6 ml/min Estimated GFR () 36.4 Estimated GFR (Non- 31.4 BUN/Creatinine Ratio 19.1 10-20 Random Glucose 229 70-99 mg/dl Calcium Level 9.3 8.5-10.1 mg/dl Magnesium Level 2.3 1.8-2.4 mg/dl Total Bilirubin 0.8 0.2-1 mg/dl Direct Bilirubin 0.2 0-0.2 mg/dl Aspartate Amino Transf (AST/SGOT) 10 15-37 U/L Alanine Aminotransferase (ALT/SGPT) 23 12-78 U/L Alkaline Phosphatase 102 45-117 U/L Total Protein 8.3 6.4-8.2 gm/dl Albumin 3.9 3.4-5.0 gm/dl Lipase 82 73-393 U/L Urine Color YELLOW Urine Appearance TURBID CLEAR Urine pH 6.5 4.5-7.5 Urine Specific [place] 1.016 1.000-1.030 Urine Protein 1+ NEG Urine Glucose (UA) NEG NEG Urine Ketones TRACE NEG Urine Occult Blood NEG NEG Urine Nitrite NEG NEG Urine Bilirubin NEG NEG Urine Urobilinogen NEG NEG Urine Leukocyte Esterase MODERATE NEG Urine WBC (Auto) 5-10 0-5 /hpf Urine RBC (Auto) 0-4 0-4 /hpf Urine Hyaline Casts (Auto) 5-10 0-5 /lpf Urine Epithelial Cells (Auto) >30 0-5 /lpf Urine Bacteria (Auto) 4+ NEG Diagnostic Radiology CT ABD/PELVIS IMPRESSION: 1. Small bowel obstruction with mesenteric edema and low volume ascites 2. No evidence of free intraperitoneal air 3. No renal, ureteral, or bladder calculi identified. 4. Cholelithiasis Impression - H&P Impression Assessment and Plan SBO - admit to med/surg - hx of hysterectomy and chronic narcotic use - NG placement attempt in ED unsuccessful however at the time of my exam there is no nausea or vomiting - NPO, IVF - f/u abd XR in AM - surgery evaluation in AM AMRIT on CKD STAGE III - baseline creat runs in the low 1's, noted to be 1.6 today - prerenal due to vomiting - IVF, follow up labs in AM - avoid nephrotoxic agents when able ASYMPTOMATIC BACTERURIA - empiric Rocephin due to leukocytosis, adjust per culture results - do not suspect sepsis HTN - BP currently controlled - on metoprolol - holding PO meds due to SBO, will use PRN hydralazine for now DEMENTIA - on Namenda and Aricept - holding PO meds due to SBO HYPOTHYROIDISM - on levothyroxine - holding PO meds due to SBO DVT PROPHYLAXIS - SCDs in the event patient needs surgery CODE STATUS - Patient is a full code as per my discussion with patient's daughter (POA) who is at the bedside DISPO - In my clinical judgment this beneficiary meets acute admission criteria, established by [facility], that includes being hospitalized through two midnights. Attending Addendum: The patient was seen and examined Complains of some abdominal pain but no Nausea and or vomiting Presented to ER with right sided abdominal pain and CT showed SBO Refused NGT O/E Obese No acute distress at rest HEENT-Unremarkable Chest-decreased breath sound bilaterally ,no crackles Abdomen-Distended,Soft ,Mildly tender ,Bowel sound present Extremities-Bilateral edema 1+ Labs and Imaging studies were reviewed Has SBO with H/O Hysterectomy-likely due to adhesions Agree with the assessment and plan Dr Ramon Zaman VTE Prophylaxis VTE Risk Assessment Done? Y/N: Yes Risk Level: Moderate Physical Exam (per Admitting): General Appearance: + mild distress (appears to be in pain) Head: normocephalic Eyes: normal inspection ENT: hearing grossly normal Neck: supple, no JVD Respiratory/Chest: lungs clear, normal breath sounds, no respiratory distress Cardiovascular: regular rate, rhythm, + pertinent finding (+2 edema BLLE) Abdomen/GI: soft, no organomegaly, no pulsatile mass, normal rectal exam, + tenderness (generalized), + abnormal bowel sounds (hyperactive) Extremities/Musculoskelatal: normal inspection, no calf tenderness Neurologic/Psych: + disoriented (to place and time) Skin: + pertinent finding (scattered scabbed areas noted over face and BLUE) Physical Exam (per Admitting): pt is intubated now, could not do neurologic exam, pt had NG tube in 5ooml blood out,UGI bleeding. on abdomen exam- soft, no distend, no skin color change, rectal exam- no rectal bleeding, normal rectal tone, no mass, Hospital Course 75 yo F admitted for SBO and found to have a UTI, became less responsive and hypotensive, rapid response was initiated and she was transferred to ICU 1. Hypotension-etiologies include but not limited to septic shock (WBC 30K), hypovolemic shock (diarrhea and vomiting recently) and medication reaction ( Ativan given this morning). 1L fluid bolus running, transferred to ICU for further workup and treatment. Daughter reports a recent cold for 2-3 weeks. Will order flu swab. CXR reveals a RLL infiltrate-no comparison available-- likely 2/2 aspiration with recent events. Defer to ICU team for further care. 2. SBO-Gen Surg consulted on patient and should be seeing her this morning. 3. UTI-cont Rocephin, however, abx will likely be broadened in light of recent events. 4. AMRIT-worsened on am labs likely related to poor perfusion. Cont IVF. 5. Leukocytosis 2/2 above-17K on admission and 31K this morning. 6. Dementia 7. Hypothyroidism DVT proph-SCDs (no chemoprophy in light of poss need for procedure) Full Dispo: to ICU for further workup and treatment Olya Stewart DO [facility] Hospitalist Documentation by Dr Zaman At around 8 in the morning patient's general condition deteriorated with Unaffordable BP deterioration in mental status Fluid bolus and pressors agent started and the patient was transferred to ICU and intubated Repeat CT of the abdomen and Pelvis consistent with Ischemic Bowel IV antibiotics were started as well Urgent Surgery ,GI and Learning Center Instructor consultation were obtained by the Attending Family members were updated about the critical condition Condition deteriorated further:I personally talked to the Family members and updated her condition in ER -Everybody understanding Planned Extubation was done and the patine ceased to Breath at 10:58 PM Talked to the family members again. O/E No response to any stimuli Pupils are widely dilated and fixed No Breathing and no Heart sound The patient was pronounced on 05/20/2016 at 2258 Hours Cause of -Ischemic Bowel Dr Ramon Zaman Total time spent on discharge = 20 minutes This includes examination of the patient, discharge planning, medication reconciliation, and communication with other providers. Discharge Instructions The patient was pronounced on 05/20/2016 at 2258 Hours Additional Copies To Junito Torres MD
--- NOTE | 2016-05-24 08:28 | EDITING REQUIRED CODING QUERY ---
ANEMIA To promote full compliance with coding requirements relating to patient care, physician participation is requested in all cases of architectural model maker uncertainty. Please assist us with the question(s) below: Coding Question(s): The record reflects the following clinical findings: HGB 9.2, HCT 27.2, Patient transfused with PRBC, in the setting of GI bleed. If these findings are indicative of anemia, please specify the known or suspected type by placing an "X" within the parenthesis (x). If other, please document type. Examples are: (+ ) Acute blood loss anemia ( ) Acute Postoperative blood loss anemia ( ) Acute postoperative anemia due to dilutional fluids ( ) Chronic blood loss anemia ( ) Anemia of chronic disease ( ) Aplastic anemia ( ) Anemia due to renal disease ( ) Anemia in neoplastic disease ( ) Iron deficient anemia ( ) Anemia, unspecified or other ( ) Other: (please specify) ( ) Unable to determine The patient did not receive any blood transfusion. Thank you for your time. PRASAD Coffman, [employer] WELDER
== END 2016-05-20 23:14 | disposition expired | DRG 393 ==
LOC: ENRESERVDT → ENRESERVTM → C.EDB 17:04 → C.MSN 20:27 → C.MSICU 05-20 08:49 → UNDODISIN 05-21 00:30
PROVIDERS: ADMIT Internal Medicine; ATTEND Hospitalist
PROC: 02HV33Z Insertion of Infusion Device into Superior Vena Cava, Percutaneous Approach (ICD-10-PCS; principal; 2016-05-20)
PROC: 5A1935Z Respiratory Ventilation, Less than 24 Consecutive Hours (ICD-10-PCS; principal; 2016-05-20)
PROC: 0BH17EZ Insertion of Endotracheal Airway into Trachea, Via Natural or Artificial Opening (ICD-10-PCS; principal; 2016-05-20)
PROC: 03HY32Z Insertion of Monitoring Device into Upper Artery, Percutaneous Approach (ICD-10-PCS; principal; 2016-05-20)
DX: K55.059 Acute (reversible) ischemia of intestine, part and extent unspecified (principal); R65.21 Severe sepsis with septic shock; A41.9 Sepsis, unspecified organism; K25.4 Chronic or unspecified gastric ulcer with hemorrhage; K56.5 Intestinal adhesions [bands] with obstruction (postinfection); N17.9 Acute kidney failure, unspecified; N39.0 Urinary tract infection, site not specified; Z68.42 Body mass index [BMI] 45.0-49.9, adult; R18.8 Other ascites; D62 Acute posthemorrhagic anemia; R04.0 Epistaxis; Y84.5 Insertion of gastric or duodenal sound as the cause of abnormal reaction of the patient, or of later complication, without mention of misadventure at the time of the procedure; Y92.238 Other place in hospital as the place of occurrence of the external cause; T42.4X5A Adverse effect of benzodiazepines, initial encounter; K80.20 Calculus of gallbladder without cholecystitis without obstruction; I12.9 Hypertensive chronic kidney disease with stage 1 through stage 4 chronic kidney disease, or unspecified chronic kidney disease; N18.3 Chronic kidney disease, stage 3 (moderate); E03.9 Hypothyroidism, unspecified; L98.1 Factitial dermatitis; M46.96 Unspecified inflammatory spondylopathy, lumbar region; F32.9 Major depressive disorder, single episode, unspecified; G30.9 Alzheimer's disease, unspecified; F02.80 Dementia in other diseases classified elsewhere, unspecified severity, without behavioral disturbance, psychotic disturbance, mood disturbance, and anxiety; E66.01 Morbid (severe) obesity due to excess calories; Z66 Do not resuscitate; Z51.5 Encounter for palliative care; Z53.29 Procedure and treatment not carried out because of patient's decision for other reasons; Z87.891 Personal history of nicotine dependence; Z79.51 Long term (current) use of inhaled steroids; Z79.82 Long term (current) use of aspirin; Z79.891 Long term (current) use of opiate analgesic; Z79.899 Other long term (current) drug therapy